=== PATIENT | female | born 1975 | race Caucasian/White ===

== ENCOUNTER → 2016-08-20 | Outpatient (CLI) | payer OTHER ==
--- NOTE | 2016-08-20 22:26 | MR ---
EXAMINATION TYPE: MR lumbar spine wo con DATE OF EXAM: 08/20/2016 7:12 PM COMPARISON: NONE HISTORY: 41-year-old female with low back pain, left lower extremity radiculopathy for 2 weeks, no tr auma or surgery. TECHNIQUE: Multiplanar, multisequence images of the lumbar spine were acquired. FINDINGS: There is levoconvex curvature of the lumbar spine with some Modic type II fatty endplate change towar ds the right side of concavity at L3-L4. No suspicious bone marrow replacement. Moderate degenerative disc disease with disc desiccation, disc height loss, and disc bulging from L2 through S1 levels. Facet degenerative change particularly on the left side in the lower lumbar spine. Vertebral body heights are preserved and alignment is maintained. Conus medullaris is normal. At T12-L1, no spinal canal or neuroforaminal stenosis. At L1-L2, no spinal canal and neuroforaminal stenosis. At L2-L3, there is diffuse disc bulge with superimposed left paracentral broad-based disc protrusion. This may impinge the traversing left L3 nerve root. No significant spinal canal or neuroforaminal st enosis. At L3-L4, there is diffuse disc bulge eccentric towards the left with facet degenerative change. This may impinge the traversing left L4 nerve root. There is minimal inferior foraminal narrowing on the left and mild right-sided neuroforaminal stenosis. No significant spinal canal stenosis. At L4-L5, diffuse disc bulge with ligamentum flavum thickening and facet degenerative change. Changes result in moderate left neuroforaminal stenosis without spinal canal stenosis. At L5-S1, there is diffuse disc bulge with right paracentral annular fissure which closely approaches and may abut the traversing right S1 nerve root. There is mild right neuroforaminal stenosis without spinal canal stenosis. No prevertebral or paravertebral soft tissue abnormality. IMPRESSION: 1. Levoconvex scoliosis of the lumbar spine with associated moderate degenerative disc disease as wel l as facet arthropathy and ligamentum flavum thickening particularly from L2 through S1 levels. 2. At L2-L3 and L3-L4, eccentric leftward disc bulge may impinge the traversing left L3 and left L4 n erve roots, at their respective levels. 3. At L5-S1, there is a disc bulge containing an annular fissure which closely approaches and may abu t the traversing right S1 nerve root. 4. Mild right neuroforaminal stenosis at L3-L4, moderate on the left at L4-L5, and mild on the right at L5-S1. 5. No canal compromise.
== END | disposition home or self-care (01) ==
LOC: RADMRIMAIN 17:55
PROVIDERS: ATTEND Family Medicine
DX: M99.73 Connective tissue and disc stenosis of intervertebral foramina of lumbar region (principal); M99.74 Connective tissue and disc stenosis of intervertebral foramina of sacral region; M51.17 Intervertebral disc disorders with radiculopathy, lumbosacral region; M46.97 Unspecified inflammatory spondylopathy, lumbosacral region; M41.87 Other forms of scoliosis, lumbosacral region; M24.28 Disorder of ligament, vertebrae
CPT/HCPCS: 72148

== ENCOUNTER → 2016-10-11 | Outpatient (CLI) | payer OTHER ==
--- NOTE | 2016-10-12 07:13 | MM ---
Reason for exam: screening (asymptomatic). Last mammogram was performed 1 year and 1 month ago. History: Patient is postmenopausal. Physical Findings: A clinical breast exam by your physician is recommended on an annual basis and results should be correlated with mammographic findings. MG Screening Mammo w CAD Bilateral CC and MLO view(s) were taken. Prior study comparison: September 20, 2015, bilateral MG 3d screening mammo w/cad. August 28, 2013, bilateral digital screening mammo w/CAD. The breast tissue is almost entirely fat. There is no discrete abnormality. No significant changes when compared with prior studies. ASSESSMENT: Negative, BI-RAD 1 RECOMMENDATION: Routine screening mammogram of both breasts in 1 year.
== END | disposition home or self-care (01) ==
LOC: RADMAMWWP 11:45
PROVIDERS: ATTEND Family Medicine
DX: Z12.31 Encounter for screening mammogram for malignant neoplasm of breast (principal)

== ENCOUNTER → 2016-11-28 | Outpatient (CLI) | payer OTHER ==
[2016-11-28 10:54] LABS: Blood Urea Nitrogen 18 mg/dL (7-17); Non-African American GFR(MDRD) 54 (>60 ml/min/1.73 sqM)
--- NOTE | 2016-11-28 12:03 | MR ---
EXAMINATION TYPE: MR brain wo/w con DATE OF EXAM: 11/28/2016 COMPARISON: 04/24/16 HISTORY: ms, astrocytoma brain surgery. TECHNIQUE: Multiplanar, multisequence images of the brain and brainstem is performed without and with utilizing 19 mL intravenous MultiHance gadolinium contrast. Demyelinating disease protocol with additional Sag ittal Flair sequence performed. FINDINGS: T2 Lesions Present : Yes Approximate Number of Lesions: Essentially stable 6-8 right-sided cerebral hemisphere lesions with a pproximately 6-8 stable left-sided cerebral hemisphere lesions. No infratentorial lesions are seen. O ne or 2 small bilateral temporal lesions. Locations Identified : Juxtacortical in location primarily. No Bonner finger morphology seen. Size of Reference Lesion(s): 1. 3 mm left juxtacortical frontal lobe. 2 5 mm subcortical left temporal lobe Enhancing Lesion(s) Present: None T1 Hypointense Lesion(s) Present: None Change from Prior: Stable There is postoperative encephalomalacia right frontal lobe with underlying cystic change and associat ed gliosis. Right frontal craniotomy noted. No abnormal enhancement of the surgical bed. The ventricles, basal cisterns and sulci overlying the cerebral convexities are mildly enlarged. There is evidence of mild periventricular white matter ischemic demyelination. Scattered nonspecific white matter changes. No evidence for acute edema diffusion weighted imaging. There is no evidence for midline shift or mass effect. Acute intracranial hemorrhage or extra-axial collection is not evident. No enhancing lesions are seen . No evidence of tumor recurrence. The paranasal sinuses and mastoid air cells are well-aerated. IMPRESSION: 1. Stable postoperative changes of right frontal craniotomy and postoperative encephalomalacia and gl iosis. No recurrent or residual enhancing lesion identified. 2. Stable Nonspecific white matter changes.
== END | disposition home or self-care (01) ==
LOC: RADMRIMAIN 10:11
PROVIDERS: ATTEND Psychiatry & Neurology Neurology
DX: G93.89 Other specified disorders of brain (principal); R90.89 Other abnormal findings on diagnostic imaging of central nervous system; G35 Multiple sclerosis; Z98.890 Other specified postprocedural states
CPT/HCPCS: 82565; 84520; 70553; A9577

== ENCOUNTER → 2017-03-25 | Outpatient (CLI) | payer OTHER ==
[2017-03-25 21:55] LABS: Appearance,CSF Clear
== END | disposition home or self-care (01) ==
LOC: LABWHC1 12:47
PROVIDERS: ATTEND Psychiatry & Neurology Neurology
DX: R90.82 White matter disease, unspecified (principal)
CPT/HCPCS: 36415; 82040; 82042; 82784; 83873; 83916; 84157; 87476; 88108; 89050

== ENCOUNTER → 2017-09-09 | Outpatient (CLI) | payer OTHER ==
--- NOTE | 2017-09-09 16:30 | MR ---
EXAMINATION TYPE: MR lumbar spine wo con DATE OF EXAM: 09/09/2017 COMPARISON: 08/20/2016 HISTORY: 42-year-old female with pain, Disc Degeneration of Lumbar Region TECHNIQUE: Multiplanar, multisequence images of the lumbar spine were acquired. FINDINGS: Levoconvex curvature of the lumbar spine. Vertebral body heights are preserved and alignment is maintained. Moderate intervertebral disc desiccation with variable mild disc height loss and diffuse disc bulging from L2 to S1 levels. Similar right paracentral annular fissure at L5-S1. New central, right paracen tral annular fissure at L3-L4. Facet arthropathy mid to lower lumbar spine. Fatty matrix hemangioma within L2 vertebral body. No suspicious bone marrow replacement. Conus medullaris is normal. At T12-L1, no spinal canal or foraminal stenosis. L1-L2, no spinal canal or neuroforaminal stenosis. At L2-L3, there is diffuse disc bulge with superimposed left paracentral disc extrusion with inferior migration of disc material, increased from prior exam. Impinges the traversing left L3 nerve root. N o significant neuroforaminal stenosis. While there is attenuation of the thecal sac, there is no sign ificant spinal canal stenosis. At L3-L4, there is diffuse disc bulge with small right paracentral annular fissure, new in the interv al. Mild facet degenerative change and bulging disc. There is impression on the ventral dural sac wit hout significant spinal canal stenosis. Changes result in similar mild bilateral neuroforaminal steno sis. At L4-L5, there is bulging disc with left intraforaminal component slightly larger from prior with li gamentum flavum thickening and facet degenerative change. There may be impingement of the traversing left L5 nerve root similar prior. Moderate left neuroforaminal stenosis is similar. No spinal canal s tenosis. At L5-S1, there is a central, right paracentral disc protrusion with annular fissure which closely ap proaches and may abut the traversing right S1 nerve root. This appears similar to prior exam. Mild ri ght-sided neural foraminal stenosis. There is a left L5 hemisacralization incidentally noted. No prevertebral or paravertebral soft tissue abnormality. IMPRESSION: 1. Left L5 hemisacralization and a levoconvex curvature/scoliosis. 2. Moderate degenerative disc disease especially from L2 through S1 levels. There is a small right-si ded herniation at L5-S1 with annular fissure that seems to abut the traversing right S1 nerve root. 3. Left paracentral disc extrusion with inferior migration appears larger from 2016. This impinges th e traversing left L3 nerve root. 4. New small right paracentral annular fissure at L3-L4. Similar mild bilateral neuroforaminal stenos is. 5. Diffuse disc bulge at L4-L5 with left intraforaminal component slightly larger from prior. There m ay be impingement of the traversing left L5 nerve root here. Moderate left neuroforaminal stenosis is similar.
== END | disposition home or self-care (01) ==
LOC: RADMRIMAIN 09:20
PROVIDERS: ATTEND Neurological Surgery
DX: M99.73 Connective tissue and disc stenosis of intervertebral foramina of lumbar region (principal); M41.9 Scoliosis, unspecified; M51.37 Other intervertebral disc degeneration, lumbosacral region; M51.27 Other intervertebral disc displacement, lumbosacral region
CPT/HCPCS: 72148

== ENCOUNTER → 2017-09-19 | Outpatient (CLI) | payer OTHER ==
--- NOTE | 2017-09-20 07:59 | CT ---
EXAMINATION TYPE: CT lumbar spine wo con DATE OF EXAM: 09/19/2017 4:54 PM COMPARISON: 09/09/2017 MRI lumbar spine HISTORY: Acquired absence of other organs. History of lumbar laminectomy. CT DLP: 1560.6 mGycm Automated exposure control for dose reduction was used. FINDINGS: The lumbar vertebral bodies maintain normal vertebral body height and alignment. Overlying the skin s urface postsurgical change is seen from L1 through L3 dorsally. Small laminectomy defect is presumed that L2 on the left. As seen on the prior MR degenerative changes of the lumbosacral spine are seen w ith left L5 hemisacralization and a levoconvex scoliotic curvature. The pedicles and transverse proce sses appear intact. There is mild multilevel degenerative change of the lumbar spine. L1-L2: Normal disc space height. No disc herniation protrusion or central stenosis. No facet joint arthropathy. No evidence for foraminal encroachment. L2-L3: As seen on the prior MRI there is a small broad-based disc bulge. There is also a left paracen tral disc herniation effacing the lateral recess and extending into the neural foramen impressing upo n the left L3 nerve root and creating moderate left neural foraminal narrowing. No spinal canal steno sis or right neural foraminal narrowing. L3-L4: A broad-based disc bulge is evident examination with facet arthropathy creating mild bilateral neural foraminal narrowing. L4-L5: There is a broad-based disc bulge and ligamentum flavum buckling resulting in moderate to alyssa re left neural foraminal narrowing and mild right neuroforaminal narrowing. No spinal canal stenosis. L5-S1: The known right paracentral disc protrusion/herniation at L5-S1 is better appreciated on MRI. Mild right neural foraminal narrowing is seen. Left neural foramen and spinal canal are patent. IMPRESSION: 1. Postsurgical changes of the lumbar spine without evidence of malalignment. 2. Left paracentral disc herniation at L2-L3 effacing the exiting left L3 nerve root creating moderat e left neural foraminal narrowing. 3. Left L5 hemisacralization and levoconvex scoliotic curvature. 4. Multilevel degenerative disc disease as described above with better visualization of the known dis c protrusion/herniation at L5 on the prior MR.
== END | disposition home or self-care (01) ==
LOC: RADCTMAIN 16:15
PROVIDERS: ATTEND Neurological Surgery
DX: M51.26 Other intervertebral disc displacement, lumbar region (principal); M99.73 Connective tissue and disc stenosis of intervertebral foramina of lumbar region; M51.36 Other intervertebral disc degeneration, lumbar region; M41.9 Scoliosis, unspecified; Z90.89 Acquired absence of other organs
CPT/HCPCS: 72131

== ENCOUNTER → 2017-10-31 | Outpatient (CLI) | payer OTHER ==
[2017-10-30 10:56] VITALS: BMI 35.2
[2017-10-31 14:49] VITALS: BP 169/99; PULSE 91; RESP 18
--- NOTE | 2017-10-31 15:29 | P.CONS ---
History of Present Illness - Reason for Consult Consult date: 10/31/17 - Chief Complaint Lower back pain - History of Present Illness This is a 42-year-old female with history of lower back pain with occasional radiation to the left upper thigh anteriorly. The patient had one back surgery previously and the most recent MRI on the lumbar spine showed paracentral disc extrusion at the L2-L3 level with compression of the left L3 nerve root. The patient denies any bowel or bladder dysfunction or any weakness in the lower extremities. This pain occasionally wakes her up at night. The patient had the seen a neurosurgeon who would like to try less invasive procedures before planning on doing any surgery on her. Prolonged activity increases her pain. She takes [id number] pain medications for this problem. 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 She also had multiple strokes and was placed on Xarelto however she told me that her physician was planning on taking her off Xarelto but she was hesitant accepting this decision because of her fear of another stroke. Past Medical History Past Medical History: CVA/TIA, Diabetes Mellitus, Hyperlipidemia, Hypertension, Musculoskeletal Disorder Additional Past Medical History / Comment(s): COLITIS, IBS. HX ENDOMETRIOSIS; ASTROCYTOMA(REMVOED). CVA X2, LT SIDE WEAKNESS. LOWER BACK PAIN W/ OCC NT & PAIN DOWN LT LEG. History of Any Multi-Drug Resistant Organisms: None Reported Past Surgical History: Back Surgery, Hysterectomy, Tonsillectomy, Uterine Ablation Additional Past Surgical History / Comment(s): BENIGN Brain Tumor (ASTROCYTOMA) REMOVED 1995. COLONOSCOPY. BACK SURG 2017. Past Anesthesia/Blood Transfusion Reactions: No Reported Reaction, Family History of Problems w/ Anesthesia Additional Past Anesthesia/Blood Transfusion Reaction / Comm: MOTHER SLOW TO AWAKEN Smoking Status: Never smoker - Past Family History Father Family Medical History: Cancer, Diabetes Mellitus, Deep Vein Thrombosis (DVT), Hypertension, Prostate Disorder Additional Family Medical History / Comment(s): PROSTATE CANCER Mother Family Medical History: COPD, Diabetes Mellitus, Hypertension Medications and Allergies Home Medications Medication Instructions Recorded Confirmed Type Exenatide Microspheres [Bydureon 2 mg SQ Q7D 10/19/15 10/30/17 History Pen] Hyoscyamine Sulfate [Levbid] 0.375 mg PO BID 10/19/15 10/30/17 History Insulin Glargine,Hum.rec.anlog 56 units SQ HS 10/19/15 10/30/17 History [Lantus Solostar] Lisinopril 40 mg PO DAILY 10/19/15 10/30/17 History Sertraline HCl 100 mg PO BID 10/19/15 10/30/17 History lamoTRIgine [Lamotrigine] 25 mg PO BID 10/19/15 10/30/17 History metFORMIN HCL 1,000 mg PO BID 10/19/15 10/30/17 History Rivaroxaban [Xarelto] 20 mg PO W/SUPPER #60 tab 10/24/15 10/30/17 Rx Ergocalciferol (Vitamin D2) 50,000 unit PO WE 10/30/17 10/30/17 History [Vitamin D2] Glimepiride [Amaryl] 1 mg PO AC-[id number] 10/30/17 10/30/17 History Naproxen Sodium [Aleve] 440 - 660 mg PO BID PRN 10/30/17 10/30/17 History Rosuvastatin Calcium [Crestor] 40 mg PO HS 10/30/17 10/30/17 History amLODIPine [Norvasc] 10 mg PO DAILY 10/30/17 10/30/17 History Allergies Allergy/AdvReac Type Severity Reaction Status Date / Time No Known Allergies Allergy Verified 10/30/17 10:40 Physical Exam Vitals: Vital Signs Pulse Resp BP Pulse Ox 10/31/17 14:38 91 18 169/99 97 - Constitutional General appearance: obese - EENT Eyes: PERRLA - Respiratory Respiratory: bilateral: CTA - Cardiovascular Rhythm: regular Heart sounds: normal: S1, S2 - Psychiatric Psychiatric: A&O x's 3, appropriate affect, intact judgment & insight Neuro exam of the lower extremities showed normal and symmetrical muscle strength and decreased but symmetrical knee reflexes however she has absent ankle jerks bilaterally and symmetrically. Straight leg raising test negative bilaterally. Steven's test negative bilaterally. She has well-healed scar from her previous lumbar surgery. She has tenderness in the lumbar paravertebral area especially on the left side of her spine and also around the left sacroiliac joint Assessment and Plan Plan: This is a 42-year-old female with history of back surgery about one year ago and recurrent back pain with occasional radiation to the left upper thigh anteriorly with no paresthesia. The patient has a compression of the left L3 nerve root as per her last MRI of the lumbar spine. The patient is diabetic and takes Xarelto for history of strokes. She may benefit from getting either caudal epidural steroid injection with lysis of adhesions or left L3 nerve root block under fluoroscopic guidance however we will have to hold her Xarelto for 72 hours but she can continue her aspirin. The patient will finish her physical therapy first and depending on her pain after she does that we will reevaluate her and see if she would like us to go ahead and schedule her for caudal epidural steroid injection. We will see the patient 4 weeks from now for reevaluation.
== END | disposition home or self-care (01) ==
LOC: PNWHC3 14:10
PROVIDERS: ATTEND Anesthesiology
DX: M54.5 Low back pain (principal); E11.9 Type 2 diabetes mellitus without complications; E78.5 Hyperlipidemia, unspecified; I10 Essential (primary) hypertension; Z90.710 Acquired absence of both cervix and uterus; Z90.89 Acquired absence of other organs; Z79.4 Long term (current) use of insulin; Z79.899 Other long term (current) drug therapy; Z79.84 Long term (current) use of oral hypoglycemic drugs; Z79.01 Long term (current) use of anticoagulants; Z79.1 Long term (current) use of non-steroidal anti-inflammatories (NSAID); Z98.890 Other specified postprocedural states
CPT/HCPCS: 99211

== ENCOUNTER → 2018-02-06 | Outpatient (CLI) | payer OTHER ==
--- NOTE | 2018-02-06 23:05 | MR ---
EXAMINATION TYPE: MR brain wo/w con DATE OF EXAM: 02/06/2018 COMPARISON: MRI brain November 28, 2016. HISTORY: White matter changes, hx astrocytoma removed 1995 TECHNIQUE: Multiplanar, multisequence images of the brain and brainstem is performed without and with IV contras t, utilizing 10 mL intravenous Gadavist gadolinium contrast is administered intravenously. Demyelina ting disease protocol with additional Sagittal Flair sequence is not performed as ordered. FINDINGS: Exam noted slightly suboptimal as additional demyelinating disease sagittal FLAIR sequence not performed presumed due to ear mold laboratory technician error. T2 Lesions Present : Yes Approximate Number of Lesions: Difficult to accurately count due to confluent area of encephalomalaci a on the right. Suspect approximately 6 scattered small lesions on the right and approximately 12 sm aller lesions on the left. Not significantly changed from prior. Locations Identified : Scattered Size of Reference Lesion(s): 1. Focal reference 6 x 2 mm oval posterior right frontal lesion axial image 20 stable. 2 reference for at least 6 punctate lesions on the left axial image 17 measuring up to 3 mm in size Enhancing Lesion(s) Present: No T1 Hypointense Lesion(s) Present: No Change from Prior: Stable Diffusion weighted images demonstrate no evidence of a recent infarct or other diffusion abnormality. There is no worrisome extra-axial fluid collection. There is area of old encephalomalacia right fro ntal region with slight ex vacuo dilatation of right ventricular system redemonstrated. Overlying aircraft systems repairer niotomy or surgical change redemonstrated. Midline structures demonstrate normal morphology. The craniocervical junction appears within normal limits. Post contrast images demonstrate no abnormal enhancement. The dural venous sinuses appear pa tent. The visualized sinuses are clear and the globes are intact. IMPRESSION: Stable postsurgical changes right frontal region and mild nonspecific white matter change s. No new or enhancing lesions are seen.
== END ==
LOC: RADMRIMAIN 07:18
PROVIDERS: ATTEND Psychiatry & Neurology Neurology
DX: R90.89 Other abnormal findings on diagnostic imaging of central nervous system (principal); Z98.890 Other specified postprocedural states
CPT/HCPCS: 82565; 84520; 70553; A9581

== ENCOUNTER 2019-01-29 12:26 | Inpatient (IN) | payer OTHER ==
[2019-01-29] MEDS ORDERED: SODIUM CHLORIDE 0.9% 1,000 ML IV STA (13:27)
--- NOTE | 2019-01-29 14:01 | ED ---
Neuro HPI - General Chief Complaint: Headache Stated Complaint: headache, dizziness, blured vision Time Seen by Provider: 01/29/19 13:01 Source: patient, RN notes reviewed, old records reviewed Mode of arrival: ambulatory Limitations: no limitations - History of Present Illness Is the patient presenting with stroke symptoms?: No Initial Comments: This is a 43-year-old female the ER for evaluation just have significant neurological history: Brain tumor with surgery 1994 and 2 strokes since then. Patient presented with blurry vision and dizziness symptoms 3 days. Patient also complaining of headaches. She states she has not felt like herself for quite some time denying any trauma. No fevers. No chest pain or shortness of breath. No recent change in medications. No significant recent hospitalizations. Patient is a mildly poor historian. Not very accurate with a lot of her statements regarding her medical history Location: other ([place], blurry vision, dizziness) History of same: Yes Place: home Severity: mild Quality: other (none) Improves With: none Worsens With: none On Anticoagulants: Yes Context: gradual onset Associated Symptoms: weakness Treatments Prior to Arrival: none - Related Data Home Medications: Home Medications Medication Instructions Recorded Confirmed Hyoscyamine Sulfate [Levbid] 0.375 mg PO BID 10/19/15 01/29/19 Lisinopril 40 mg PO DAILY 10/19/15 01/29/19 Sertraline HCl 100 mg PO BID 10/19/15 01/29/19 lamoTRIgine [Lamotrigine] 25 mg PO BID 10/19/15 01/29/19 metFORMIN HCL 1,000 mg PO BID 10/19/15 01/29/19 Ergocalciferol (Vitamin D2) 50,000 unit PO WE 10/30/17 01/29/19 [Vitamin D2] Rosuvastatin Calcium [Crestor] 40 mg PO HS 10/30/17 01/29/19 amLODIPine [Norvasc] 10 mg PO DAILY 10/30/17 01/29/19 Hydrochlorothiazide 12.5 mg PO DAILY 01/29/19 01/29/19 Insulin Glargine [Lantus] 45 unit SQ BID 01/29/19 01/29/19 Liraglutide [Victoza 3-Kapil] 1.8 mg SQ DAILY 01/29/19 01/29/19 Pioglitazone [Actos] 15 mg PO DAILY 01/29/19 01/29/19 Pioglitazone [Actos] 15 mg PO DAILY 01/29/19 01/29/19 Triamterene/Hydrochlorothiazid 1 tab PO DAILY 01/29/19 01/29/19 [Triamterene-Hctz 37.5-25 mg Tb] Vortioxetine Hydrobromide 10 mg PO DAILY 01/29/19 01/29/19 [Trintellix] Allergies/Adverse Reactions: Allergies Allergy/AdvReac Type Severity Reaction Status Date / Time No Known Allergies Allergy Verified 01/29/19 12:40 Review of Systems ROS Statement: Those systems with pertinent positive or pertinent negative responses have been documented in the HPI. ROS Other: All systems not noted in ROS Statement are negative. General Exam - General Exam Comments Initial Comments: NIH of 0 Limitations: no limitations General appearance: alert, in no apparent distress Head exam: Present: atraumatic, normocephalic, normal inspection Eye exam: Present: normal appearance, PERRL, EOMI. Absent: scleral icterus, conjunctival injection, periorbital swelling ENT exam: Present: normal exam, mucous membranes moist Neck exam: Present: normal inspection. Absent: tenderness, meningismus, lymphadenopathy Respiratory exam: Present: normal lung sounds bilaterally. Absent: respiratory distress, wheezes, rales, rhonchi, stridor Cardiovascular Exam: Present: regular rate, normal rhythm, normal heart sounds. Absent: systolic murmur, diastolic murmur, rubs, gallop, clicks GI/Abdominal exam: Present: soft, normal bowel sounds. Absent: distended, tend erness, guarding, rebound, rigid Extremities exam: Present: normal inspection, full ROM, normal capillary refill. Absent: tenderness, pedal edema, joint swelling, calf tenderness Back exam: Present: normal inspection Neurological exam: Present: alert, oriented X3, CN II-XII intact Psychiatric exam: Present: normal affect, normal mood Skin exam: Present: warm, dry, intact, normal color. Absent: rash Stroke MDM - Lab Data Result diagrams: 01/29/19 14:08 01/29/19 14:08 Lab Results 01/29/19 01/29/19 01/29/19 Range/Units 14:08 14:08 14:08 WBC 9.8 (3.8-10.6) k/uL RBC 4.18 (3.80-5.40) m/uL Hgb 12.8 (11.4-16.0) gm/dL Hct 36.2 (34.0-46.0) % MCV 86.6 (80.0-100.0) fL MCH 30.5 (25.0-35.0) pg MCHC 35.3 (31.0-37.0) g/dL RDW 12.2 (11.5-15.5) % Plt Count 307 (150-450) k/uL Neutrophils % 72 % Lymphocytes % 22 % Monocytes % 4 % Eosinophils % 1 % Basophils % 0 % Neutrophils # 7.1 (1.3-7.7) k/uL Lymphocytes # 2.2 (1.0-4.8) k/uL Monocytes # 0.4 (0-1.0) k/uL Eosinophils # 0.1 (0-0.7) k/uL Basophils # 0.0 (0-0.2) k/uL PT 9.7 (9.0-12.0) sec INR 0.9 (<1.2) APTT 26.1 (22.0-30.0) sec Sodium 135 L (137-145) mmol/L Potassium 4.9 (3.5-5.1) mmol/L Chloride 98 (98-107) mmol/L Carbon Dioxide 24 (22-30) mmol/L Anion Gap 13 mmol/L BUN 45 H (7-17) mg/dL Creatinine 2.74 H (0.52-1.04) mg/dL Est GFR (CKD-EPI)AfAm 23 (>60 ml/min/1.73 sqM) Est GFR (CKD-EPI)NonAf 20 (>60 ml/min/1.73 sqM) Glucose 133 H (74-99) mg/dL Calcium 9.7 (8.4-10.2) mg/dL Total Bilirubin 0.3 (0.2-1.3) mg/dL AST 26 (14-36) U/L ALT 18 (9-52) U/L Alkaline Phosphatase 63 (38-126) U/L Creatine Kinase 53 (30-135) U/L Troponin I (0.000-0.034) ng/mL Total Protein 6.8 (6.3-8.2) g/dL Albumin 3.8 (3.5-5.0) g/dL 01/29/19 Range/Units 14:08 WBC (3.8-10.6) k/uL RBC (3.80-5.40) m/uL Hgb (11.4-16.0) gm/dL Hct (34.0-46.0) % MCV (80.0-100.0) fL MCH (25.0-35.0) pg MCHC (31.0-37.0) g/dL RDW (11.5-15.5) % Plt Count (150-450) k/uL Neutrophils % % Lymphocytes % % Monocytes % % Eosinophils % % Basophils % % Neutrophils # (1.3-7.7) k/uL Lymphocytes # (1.0-4.8) k/uL Monocytes # (0-1.0) k/uL Eosinophils # (0-0.7) k/uL Basophils # (0-0.2) k/uL PT (9.0-12.0) sec INR (<1.2) APTT (22.0-30.0) sec Sodium (137-145) mmol/L Potassium (3.5-5.1) mmol/L Chloride (98-107) mmol/L Carbon Dioxide (22-30) mmol/L Anion Gap mmol/L BUN (7-17) mg/dL Creatinine (0.52-1.04) mg/dL Est GFR (CKD-EPI)AfAm (>60 ml/min/1.73 sqM) Est GFR (CKD-EPI)NonAf (>60 ml/min/1.73 sqM) Glucose (74-99) mg/dL Calcium (8.4-10.2) mg/dL Total Bilirubin (0.2-1.3) mg/dL AST (14-36) U/L ALT (9-52) U/L Alkaline Phosphatase (38-126) U/L Creatine Kinase (30-135) U/L Troponin I <0.012 (0.000-0.034) ng/mL Total Protein (6.3-8.2) g/dL Albumin (3.5-5.0) g/dL - NIH Stroke Scale 1a. Level of Consciousness: (0) alert 1b. LOC Questions: (0) answers correctly 1c. LOC Commands: (0) performs tasks correctly 2. Best Gaze: (0) normal 3. Visual: (0) no visual loss 4. Facial Palsy: (0) normal symmetrical movement 5a. Motor Arm Left: (0) no drift 5b. Motor Arm Right: (0) no drift 6a. Motor Leg Left: (0) no drift 6b. Motor Leg Right: (0) no drift 7. Limb Ataxia: (0) absent 8. Sensory: (0) normal 9. Best Language: (0) no aphasia 10. Dysarthria: (0) normal 11. Extinction/Inattention: (0) no abnormality - Thrombolytic Inclusion/Exclusion Thrombolytic Exclusion Criteria: Symptom Onset > 4.5 Hours - Medical Decision Making 43 female the ER for evaluation patient resents today for evaluation of neurological symptoms headache dizziness and weakness. CT brain unchanged, chest x-rays negative. We'll admit for continued hydration evaluation of renal failure and neurology to see - Radiology Data Radiology results: report reviewed (CT brain and chest x-rays negative for acute), image reviewed - EKG Data -: EKG Interpreted by Me (EKG shows sinus rhythm rate of 84, W[place] 1:30, QRS 90, QTc 470) Past Medical History Past Medical History: CVA/TIA, Diabetes Mellitus, Hyperlipidemia, Hypertension, Musculoskeletal Disorder Additional Past Medical History / Comment(s): COLITIS, IBS. HX ENDOMETRIOSIS; ASTROCYTOMA(REMVOED). CVA X2, LT SIDE WEAKNESS. LOWER BACK PAIN W/ OCC NT & PAIN DOWN LT LEG. History of Any Multi-Drug Resistant Organisms: None Reported Past Surgical History: Back Surgery, Hysterectomy, Tonsillectomy, Uterine A blation Additional Past Surgical History / Comment(s): BENIGN Brain Tumor (ASTROCYTOMA) REMOVED 1995. COLONOSCOPY. BACK SURG 2017. Past Anesthesia/Blood Transfusion Reactions: No Reported Reaction, Family History of Problems w/ Anesthesia Additional Past Anesthesia/Blood Transfusion Reaction / Comment(s): MOTHER SLOW TO AWAKEN Past Psychological History: Anxiety, Depression Smoking Status: Never smoker Past Alcohol Use History: None Reported Past Drug Use History: None Reported - Past Family History Father Family Medical History: Cancer, Diabetes Mellitus, Deep Vein Thrombosis (DVT), Hypertension, Prostate Disorder Additional Family Medical History / Comment(s): PROSTATE CANCER Mother Family Medical History: COPD, Diabetes Mellitus, Hypertension Course Vital Signs 01/29/19 01/29/19 12:37 12:40 Temperature 98.5 F 98.0 F Pulse Rate 92 89 Respiratory 20 16 Rate Blood Pressure 105/64 127/76 O2 Sat by Pulse 97 98 Oximetry - Reevaluation(s) Reevaluation #1: 01/29/19 15:21 Medical records are reviewed Reevaluation #2: 01/29/19 15:21 A she is in no acute distress, no evolving neurological change Disposition Clinical Impression: CVA (cerebral vascular accident), TIA (transient ischemic attack), ARF (acute renal failure) Disposition: ADMITTED IP TO THIS HOSP Condition: Fair Is patient prescribed a controlled substance at d/c from ED?: No Referrals: Heath Morrow DO [Primary Care Provider] - 1-2 days
[2019-01-29 14:33] LABS: Basophils % (A) 0 %; Eosinophils # (A) 0.1 k/uL (0-0.7); Eosinophils % (A) 1 %; HCT 36.2 % (34.0-46.0); HGB 12.8 gm/dL (11.4-16.0); Lymphocytes # (A) 2.2 k/uL (1.0-4.8); Lymphocytes % (A) 22 %; MCH 30.5 pg (25.0-35.0); MCHC 35.3 g/dL (31.0-37.0); MCV 86.6 fL (80.0-100.0); Mean Platelet Volume 6.4; Monocytes # (A) 0.4 k/uL (0-1.0); Monocytes % (A) 4 %; Neutrophils # (A) 7.1 k/uL (1.3-7.7); Neutrophils % (A) 72 %; Platelet Count 307 k/uL (150-450); RBC 4.18 m/uL (3.80-5.40); RDW 12.2 % (11.5-15.5); WBC 9.8 k/uL (3.8-10.6)
[2019-01-29 14:37] LABS: INR 0.9 (<1.2); Partial Thromboplastin Time 26.1 sec (22.0-30.0); Prothrombin Time 9.7 sec (9.0-12.0)
[2019-01-29 14:38] LABS: Albumin 3.8 g/dL (3.5-5.0); Calcium 9.7 mg/dL (8.4-10.2); Potassium 4.9 mmol/L (3.5-5.1); Total Bilirubin 0.3 mg/dL (0.2-1.3); Total Protein 6.8 g/dL (6.3-8.2)
--- NOTE | 2019-01-29 14:41 | CT ---
EXAMINATION TYPE: CT brain wo con for TPA DATE OF EXAM: 01/29/2019 COMPARISON: INDICATION: Neuro defiicts, dizziness, blurred vision for 3 days DLP: 1099.4 mGycm, Automated exposure control for dose reduction was used. CONTRAST: None CT of the brain is performed utilizing 3 mm thick sections through the posterior fossa and 3 mm thick sections through the remaining calvarium. Study is performed within 24 hours of arrival to the hosp ital. No abnormal hyperdensity is present to suggest an acute intracranial hemorrhage. No mass lesion is evident. There is some calcification along the midline falx to the right may be ret urned out meningioma with the depth of 0.7 cm. No significant mass effect on the adjacent brain is ev ident. There is some calcification within the parenchyma of the right frontal lobe. This was present previou sly. No acute infarcts are evident. Old infarcts are within the right basal ganglia. White matter changes are present in the right frontal lobe. Irregular signal within the brain is normal Ventricles and sulci are appropriate for the patient age. Paranasal sinuses and mastoid air cells within the [id number] are clear. IMPRESSIONS: 1. Old right frontal and right basal ganglia infarcts. 2. No acute intracranial process.
[2019-01-29] MEDS ORDERED: ASPIRIN 325 MG TAB PO STA (15:16)
[2019-01-29 15:53] LABS: Appearance,Urine Cloudy (Clear); Bacteria,Urine Rare /hpf; Bilirubin,Urine Negative (Negative); Blood,Urine Negative (Negative); Color,Urine Yellow; Glucose,Urine (UA) Negative (Negative); Hyaline Casts,Urine 7 /lpf (0-2); Ketones,Urine Negative (Negative); Leukocyte Esterase,Urine Negative (Negative); Mucus,Urine Rare /hpf; Nitrite,Urine Negative (Negative); Protein,Urine 1+ (Negative); RBC,Urine <1 /hpf (0-5); Squamous Epithelial Cell,Urine 4 /hpf (0-4); Urobilinogen,Urine <2.0 mg/dL (<2.0); WBC,Urine 6 /hpf (0-5)
[2019-01-29 17:01] LABS: Glucose,Whole Blood 114 mg/dL (75-99)
--- NOTE | 2019-01-29 17:33 | P.CNNES ---
History of Present Illness Consult date: 01/29/19 Requesting physician: Nito Toscano Reason for Consult: CVA Chief complaint: Headache, dizzy and blurred vision x 3 days History of Present Illness: This is a 43 RH female h/o right hemispheric astrocytoma s/p resection 1994 in remission since followed by Dr. Gonzales. She had a stroke on the table during the resection. Details are not clear, but reportedly she did not have residual deficits other than chronic headaches. In 2016, she presented with sudden onset of blurred vision affecting both eyes. Imageries were "jittery" towards one side. She was found to have a right occipital cortical and subcortical ischemic infarct for which STEFF was done to r/o an embolic source. No [id number]-[id number] shunt was found, but her EF was low at 30%. She was put on Xarelto and aspirin. Her Xarelto was eventually discontinued by cardiology, but she is maintained on aspirin and statin. Her vascular risk factors include HTN, DM and HL. Patient states her BS have not been under control and can run up to the 400s. She states that since her brain surgery and strokes, she suffers from chronic headaches, but over the past 3 days, she just has not been feeling right with worsening of her headache, bilateral blurred vision without actual loss of vision, diplopia or amaurosis; and lightheadedness without vertigo or loss of consciousness. She states the blurred vision she currently experiences is not the same as what she had back in 2016 when she had her occipital stroke. She also c/o poor STM. LTM is ok. Her corroborates that she needs to be reminded quite frequently. No sundowning, nocturnal agitation or psychosis. She was found in the ER to be in renal failure, with her current creatinine at 2.74 with an estimated GFR of 20. Her last Cr checked in our system was back in 06/2018 that was impaired but not quite as bad at 1.6. Patient is not aware of any chronic renal issues and does not routinely see a baker second. Neurologically, patient denies seizure, decreased level or loss of consciousness, facial numbness or droop, vertigo, dysarthria, dysphagia, aphasia, other focal numbness/weakness not mentioned above, tremors, bowel/bladder incontinence or ataxia. Review of Systems I have performed a 14-point organ ROS with patient; pertinents are as per HPI. Past Medical History Past Medical History: CVA/TIA, Diabetes Mellitus, Hyperlipidemia, Hypertension, Myocardial Infarction (OR), Musculoskeletal Disorder Additional Past Medical History / Comment(s): 1994 Brain resection for a strocytoma and had CVA with surgery/ 2016 CVA=L sided weakness, IDDM type II, takosubo syndrome in 2016, IBS, chronic low back pain occasional numbness/tingling/pain down L leg Last Myocardial Infarction Date:: 2016 takosubo History of Any Multi-Drug Resistant Organisms: None Reported Past Surgical History: Back Surgery, Heart Catheterization, Hysterectomy, Tonsillectomy, Uterine Ablation Additional Past Surgical History / Comment(s): 1994 R sided brain tumor resection, low back surgery, colonoscopies, STEFF Past Anesthesia/Blood Transfusion Reactions: No Reported Reaction, Family History of Problems w/ Anesthesia Additional Past Anesthesia/Blood Transfusion Reaction / Comment(s): MOTHER SLOW TO AWAKEN Past Psychological History: Anxiety, Depression Additional Psychological History / Comment(s): Pt resides alone. She is independent. She uses no assistive devices. Smoking Status: Never smoker Past Alcohol Use History: Rare Past Drug Use History: None Reported - Past Family History Father Family Medical History: Cancer, Diabetes Mellitus, Deep Vein Thrombosis (DVT), Hypertension, Prostate Disorder Additional Family Medical History / Comment(s): PROSTATE CANCER Mother Family Medical History: COPD, Diabetes Mellitus, Hypertension, Respiratory Disorder Additional Family Medical History / Comment(s): Pulmonary fibrosis. Medications and Allergies Home Medications Medication Instructions Recorded Confirmed Type Hyoscyamine Sulfate [Levbid] 0.375 mg PO BID 10/19/15 01/29/19 History Lisinopril 40 mg PO DAILY 10/19/15 01/29/19 History Sertraline HCl 100 mg PO BID 10/19/15 01/29/19 History lamoTRIgine [Lamotrigine] 25 mg PO BID 10/19/15 01/29/19 History metFORMIN HCL 1,000 mg PO BID 10/19/15 01/29/19 History Ergocalciferol (Vitamin D2) 50,000 unit PO WE 10/30/17 01/29/19 History [Vitamin D2] Rosuvastatin Calcium [Crestor] 40 mg PO HS 10/30/17 01/29/19 History amLODIPine [Norvasc] 10 mg PO DAILY 10/30/17 01/29/19 History Hydrochlorothiazide 12.5 mg PO DAILY 01/29/19 01/29/19 History Insulin Glargine [Lantus] 45 unit SQ BID 01/29/19 01/29/19 History Liraglutide [Victoza 3-Kapil] 1.8 mg SQ DAILY 01/29/19 01/29/19 History Pioglitazone [Actos] 15 mg PO DAILY 01/29/19 01/29/19 History Pioglitazone [Actos] 15 mg PO DAILY 01/29/19 01/29/19 History Triamterene/Hydrochlorothiazid 1 tab PO DAILY 01/29/19 01/29/19 History [Triamterene-Hctz 37.5-25 mg Tb] Vortioxetine Hydrobromide 10 mg PO DAILY 01/29/19 01/29/19 History [Trintellix] Allergies Allergy/AdvReac Type Severity Reaction Status Date / Time No Known Allergies Allergy Verified 01/29/19 12:40 Physical Examination - Vital Signs Vital Signs: Vital Signs Temp Pulse Pulse Resp BP BP Pulse Ox 01/29/19 16:20 89 16 157/86 99 01/29/19 16:00 81 89 16 135/70 157/86 99 01/29/19 15:30 143/74 01/29/19 15:00 86 11 L 123/69 99 01/29/19 14:30 84 15 127/76 99 01/29/19 13:30 87 15 127/76 97 01/29/19 12:48 43 H 01/29/19 12:40 98.0 F 89 16 127/76 98 01/29/19 12:37 98.5 F 92 20 105/64 97 Intake and Output 01/29/19 01/29/19 01/29/19 06:59 14:59 22:59 Other: Weight 92.17 kg Gen NAD Pleasant and cooperative HEENT NCAT Sclera without icterus O/P clear Neck Supple No carotid bruit Cor RRR no m/r/g Lungs CTAB Abd Soft NTND +BS Ext Warm to touch No edema Neuro MS A+Ox4 Normal fluency Able to follow all commands CN PERRL VFF no APD EOMI no nystagmus or VIOLETTE No facial asymmetry Masseter's symmetric Hearing intact to normal voice bilaterally Speech not dysarthric Equal elevation of palate Tongue midline Sym shrug and SCM bilaterally Motor Normal bulk/tone No pronator or leg drift No tremors Strength 5/5 sym throughout Sens Intact to LT x4 No neglect or extinction Coord No dysmetria on FTN bilaterally No rebound or loss of adelaide DTRs 1+/4 sym throughout Toes downgoing bilaterally No clonus at achilles Gait Deferred NIHSS 0 Results - Laboratory Findings CBC and BMP: 01/29/19 14:08 01/29/19 14:08 Abnormal Lab Findings: Abnormal Labs 01/29/19 01/29/19 01/29/19 14:08 15:32 17:00 Sodium 135 L BUN 45 H Creatinine 2.74 H Glucose 133 H POC Glucose (mg/dL) 114 H Urine Appearance Cloudy H Urine Protein 1+ H Urine WBC 6 H Urine Bacteria Rare H Hyaline Casts 7 H Urine Mucus Rare H - Diagnostic Findings Additional findings: CT Head wo cont 01/29/19. Right frontal cortical and subcortical encephalomalacia with calcification. No ICH. Nil acute. MRI Brain w wo robles 02/06/18. Right frontal encephalomalacia with ex vacuo dilatation. No abnormal enhancement. Overall stable post-surgical changes. MRI brain w robles 10/20/15. Area of restricted diffusion in the right cortical and subcortical occipital area. Post-surgical changes in the right frontal area. I have reviewed neuroimages myself. Assessment and Plan Assessment: Constellation of non-specific neuro symptoms including headache, dizziness and blurred vision. Non-focal neuro exam. May be metabolic due to renal failure and hyperglycemia, but certainly given her extensive neurological and neurosurgical history, will pursue further detailed neuroimaging to r/o a primary acute neurological structural explanation. Plan: -MRI brain wo robles only given current creatinine -May obtain more stroke work-up pending MRI results -Continue aspirin and statin; fasting lipids in am -May treat BP to normotensive range but avoid hypotension -As for her poor STM, it may be due to metabolic derangements. Will send TSH and B12 in am -PT/OT/SP per protocol -Stroke education given to patient/ -DVT prophylaxis -d/w patient/ in detail. All questions answered. Thank you for this consultation. Please call with ?. Time with Patient: Greater than 30 (Time spent in direct patient care, greater than 50% of which was spent in [id number] counseling and coordination of care: 70 minutes)
[2019-01-29] MEDS: amLODIPine 10 MG TAB PO SCH (17:38)
[2019-01-29] MEDS: ATORVASTATIN 80 MG TAB PO SCH (20:04)
[2019-01-29] MEDS: lamoTRIgine 25 MG TAB PO SCH (20:05)
[2019-01-29] MEDS: SERTRALINE 100 MG TAB PO SCH (20:05)
[2019-01-29] MEDS: HYOSCYAMINE SULFATE 0.375 MG TAB.ER.12H PO SCH (20:05)
[2019-01-29] MEDS: INSULIN DETEMIR (LEVEMIR) 100 UNIT/ML SYR SQ SCH (20:10)
[2019-01-29 20:11] LABS: Glucose,Whole Blood 120 mg/dL (75-99)
[2019-01-29] MEDS ORDERED: NON FORMULARY DRUG (Rosuvastatin Calcium [Crestor] 40 MG) PO SCH (21:00)
[2019-01-30 01:57] LABS: Glucose,Whole Blood 107 mg/dL (75-99)
[2019-01-30 02:19] LABS: Hemoglobin A1C 14.3 % (4.0-6.0)
[2019-01-30 05:50] LABS: Glucose,Whole Blood 91 mg/dL (75-99)
[2019-01-30 07:08] LABS: Albumin 3.5 g/dL (3.5-5.0); Calcium 9.5 mg/dL (8.4-10.2); Potassium 4.4 mmol/L (3.5-5.1); Total Bilirubin 0.3 mg/dL (0.2-1.3); Total Protein 6.5 g/dL (6.3-8.2)
[2019-01-30] MEDS: INSULIN DETEMIR (LEVEMIR) 100 UNIT/ML SYR SQ SCH ×2 (08:05→21:04)
[2019-01-30] MEDS ORDERED: TRIAMTERENE-HCTZ 37.5-25MG 1 EACH TAB PO SCH (09:00)
[2019-01-30] MEDS ORDERED: LISINOPRIL 20 MG TAB PO SCH (09:00)
[2019-01-30] MEDS ORDERED: HYDROCHLOROTHIAZIDE 12.5 MG CAP PO SCH (09:00)
[2019-01-30] MEDS: HYOSCYAMINE SULFATE 0.375 MG TAB.ER.12H PO SCH ×2 (09:02→21:03)
[2019-01-30] MEDS: amLODIPine 10 MG TAB PO SCH (09:02)
[2019-01-30] MEDS: lamoTRIgine 25 MG TAB PO SCH ×2 (09:02→21:03)
[2019-01-30] MEDS: SERTRALINE 100 MG TAB PO SCH ×2 (09:02→21:03)
--- NOTE | 2019-01-30 09:07 | CONS ---
CONSULTATION REASON FOR CONSULT: Renal failure. HISTORY OF PRESENT ILLNESS: The patient is a 43-year-old female who was admitted to the hospital with symptoms of dizziness, some numbness. She has been evaluated by Neurology and is scheduled for an MRI. The patient has a history of astrocytoma, status post resection in 1994, being followed by Dr. Gonzales as outpatient. She has had chronic headaches. Recent workup showed ejection fraction at about 30%. The patient is being followed by Cardiology. She is maintained on anticoagulation as she was noted to have right occipital cortical and subcortical ischemic infarct in 2016. The patient denied any prior history of kidney diseases. Her creatinine was at 2.7 yesterday. It is down to 2.0 now. We have a creatinine 1.6 in June of 2018. In 2016, we have a creatinine of 0.9. The patient admits to taking Advil or Aleve on a daily basis. She is maintained on lisinopril. Blood pressure is currently not low. UA showed 1+ protein, no blood was seen. PAST MEDICAL HISTORY: History of astrocytoma, status post resection, history of embolic stroke with history of cardiomyopathy, EF 30% in 2016, maintained on anticoagulation. PAST SURGICAL HISTORY: Back surgery, cardiac catheterization, hysterectomy, tonsillectomy, uterine ablation, resection of astrocytoma in the brain, TEEs, colonoscopies. SOCIAL HISTORY: Negative for smoking, drug abuse or alcohol abuse. MEDICATIONS: Medications at home prior to admission included Levbid, lisinopril, lamotrigine, sertraline, metformin, Crestor, Norvasc, Actos, triamterene. ALLERGIES: None. PHYSICAL EXAMINATION: On examination, patient is currently comfortable, awake, alert, oriented x3, not in any acute distress. Blood pressure is 134/70, heart rate 75 per minute. She is afebrile. EXAMINATION OF THE HEART: S1, S2. EXAMINATION OF THE LUNGS: Bilateral breath sounds are heard. Abdomen is soft, nontender. INVENTORY TAKER exam is grossly intact. I do not appreciate any significant weakness in her extremities. LABS: Labs show sodium of 137, potassium 4.4, chloride 103, BUN 38, serum creatinine 2.04. UA shows 1+ protein from yesterday, no blood is seen. WBC is 6.0. ASSESSMENT: 1. Acute kidney injury, possibly related to use of nonsteroidal anti-inflammatory agents along with LANNY inhibitors. Blood pressure was not significantly low during this admission. Given the proteinuria, we need to workup for any underlying GN. I will check baseline serologies. I will also start the patient on IV fluids and repeat labs in a.m. Renal function is already improving. We will check for urine retention as well given her history of brain surgery and neurological symptoms. No nephrotoxic medications on board. Agree with checking MRI without gadolinium. 2. History of astrocytoma, status post resection of the tumor. 3. History of hypertension. Blood pressure fairly well controlled. However, I will hold off on the lisinopril given the significant acute kidney injury. Hold the hydrochlorothiazide as well for now. The patient is on Dyazide as well which we can continue. If the blood pressure remains elevated, we can add Coreg. Thank you for this consultation. We will continue to follow the patient with you during her hospitalization. TASHA / MIHAELA: [id number] /
[2019-01-30 11:23] LABS: Glucose,Whole Blood 119 mg/dL (75-99)
--- NOTE | 2019-01-30 11:40 | ECHOF ---
Referral Reason:Dizziness MEASUREMENTS -------- HEIGHT: 167.6 cm WEIGHT: 90.7 kg BP: 137/79 RVIDd: 3.5 cm (< 3.3) IVSd: 1.2 cm (0.6 - 1.1) LVIDd: 4.0 cm (3.9 - 5.3) LVPWd: 1.3 cm (0.6 - 1.1) IVSs: 1.6 cm LVIDs: 2.4 cm LVPWs: 1.8 cm LAESV Index (A-L): 22.52 ml/m Ao Diam: 2.9 cm (2.0 - 3.7) AV Cusp: 1.8 cm (1.5 - 2.6) LA Diam: 3.2 cm (2.7 - 3.8) EPSS: 0.4 cm MV E Peter: 1.10 m/s MV DecT: 187 ms MV A Peter: 0.85 m/s MV E/A Ratio: 1.30 AV maxP.47 mmHg AV meanP.02 mmHg RAP: 5.00 mmHg RVSP: 21.19 mmHg MV EF SLOPE: 91.86 mm/s (70 - 150) MV EXCURSION: 1.44 cm (> 18.000) FINDINGS -------- Sinus rhythm. This was a technically adequate study. The left ventricular size is normal. There is mild concentric left ventricular hypertrophy. Overa ll left ventricular systolic function is normal with, an EF between 55 - 60 %. The diastolic fillin g pattern is normal for the age of the patient. The right ventricle is mildly enlarged. Left atrium is normal size by volume. The right atrial size is normal. Interatrial and interventricular septum intact. The aortic valve is trileaflet, and appears structurally normal. No aortic stenosis or regurgitation. The mitral valve is normal. There is trace to mild mitral regurgitation. Mild tricuspid regurgitation present. There is no evidence of pulmonary hypertension. The right v entricular systolic pressure, as measured by Doppler, is 21.19mmHg. There is no pulmonic regurgitation present. The aortic root size is normal. IVC not well visualized There is no pericardial effusion. CONCLUSIONS -------- 1. Sinus rhythm. 2. The left ventricular size is normal. 3. There is mild concentric left ventricular hypertrophy. 4. Overall left ventricular systolic function is normal with, an EF between 55 - 60 %. 5. The diastolic filling pattern is normal for the age of the patient. 6. The right ventricle is mildly enlarged. 7. Left atrium is normal size by volume. 8. The aortic valve is trileaflet, and appears structurally normal. No aortic stenosis or regurgitati on. 9. There is trace to mild mitral regurgitation. 10. Mild tricuspid regurgitation present. 11. There is no evidence of pulmonary hypertension. 12. There is no pulmonic regurgitation present. 13. The aortic root size is normal. 14. IVC not well visualized 15. There is no pericardial effusion. ELECTRICAL DEVELOPMENT ENGINEER: Candy Triana RDCS
--- NOTE | 2019-01-30 11:44 | US ---
EXAMINATION TYPE: US kidneys/renal and bladder DATE OF EXAM: 01/30/2019 COMPARISON: NONE CLINICAL HISTORY: RF. Diabetic EXAM MEASUREMENTS: Right Kidney: 11.2 x 6.1 x 5.4 cm Left Kidney: 10.7 x 5.8 x 5.7 cm Post Void Residual Volume: 6.3 mL Right Kidney: No hydronephrosis or masses seen; hypoechoic crescent shaped area is seen adjacent to b ilateral renal cortex is noted as sonographic"sweat sign" which suggests renal failure. Left Kidney: No hydronephrosis or masses seen Bladder: wnl Bilateral Jets seen: yes Normal Post Void Residual: yes IMPRESSION: 1. Minimal fluid adjacent to the kidney can correlate with renal failure.
--- NOTE | 2019-01-30 11:46 | US ---
EXAMINATION TYPE: US carotid duplex BILAT DATE OF EXAM: 01/30/2019 COMPARISON: NONE CLINICAL HISTORY: Dizziness. Dizziness, blurred vision, headache, history of TIA EXAM MEASUREMENTS: RIGHT: Peak Systolic Velocity (PSV) cm/sec ----- Right CCA: 62.5 ----- Right ICA: 106.0 ----- Right ECA: 74.6 ICA/CCA ratio: 1.7 RIGHT: End Diastole cm/sec ----- Right CCA: 15.3 ----- Right ICA: 37.4 ----- Right ECA: 9.8 LEFT: Peak Systolic Velocity (PSV) cm/sec ----- Left CCA: 69.1 ----- Left ICA: 92.2 ----- Left ECA: 61.4 ICA/CCA ratio: 1.3 LEFT: End Diastole cm/sec ----- Left CCA: 21.9 ----- Left ICA: 40.6 ----- Left ECA: 10.9 VERTEBRALS (direction of flow): Right Vertebral: antegrade Left Vertebral: antegrade Rhythm: normal Mild plaque with no significant velocity elevations. IMPRESSION: Mild atheromatous plaquing without significant flow-limiting stenosis. Criteria for Assigning % of Stenosis / Diameter reduction (Estimation based on the indirect measurements of the internal carotid artery velocities (ICA PSV). 1. Normal (no stenosis)=ICA PSV < 125 cm/s: ratio < 2.0: ICA EDV<40 cm/s. 2. Less than 50% stenosis=ICA PSV < 125 cm/s: ratio < 2.0: ICA EDV<40 cm/s. 3. 50 to 69% stenosis=ICA PSV of 125 to 230 cm/s: ration 2.0 ? 4.0: ICA EDV 40-100 cm/s. 4. Greater than 70% stenosis to near occlusion= ICA PSV > 230 cm/s: ratio > 4.0: ICA EDV > 100 cm/s. 5. Near occlusion= ICA PSV velocities may be low or undetectable: variable ratio and ICA EDV. 6. Total occlusion=unable to detect flow.
[2019-01-30] MEDS: ASPIRIN 325 MG TAB PO SCH (11:54)
[2019-01-30] MEDS: SODIUM CHLORIDE 0.9% 1,000 ML IV SCH (11:55)
--- NOTE | 2019-01-30 13:05 | MR ---
EXAMINATION TYPE: MR brain wo con DATE OF EXAM: 01/30/2019 COMPARISON: 01/29/2019 CT brain, 02/06/2019 HISTORY: visual changes h/o occipital CVA+astrocytoma CONTRAST: Performed utilizing 0 mL intravenous Gadavist gadolinium contrast. TECHNIQUE: Multiplanar, multiecho imaging on a 3.0 Corinna magnet is performed through the brain. Stud y is performed within 24 hours of arrival to the hospital. Postsurgical changes are through the right frontal lobe. Cystic areas within the prior surgery site a re stable. The solid component areas appear smaller than comparison. Adjacent white matter findings c an be related to post radiation changes. The craniovertebral junction is normal. The pituitary is normal. Diffusion-weighted imaging is performed. There is a faint slightly hyperintense signal superior to t he left lateral ventricle on diffusion-weighted imaging. A small focus of ischemic change could be co nsidered. This would be acute ischemic change. There are additional scattered punctate areas of hyperintensity on T2 and Inversion Recovery weighted sequences which are non-specific but can be related to microvascular ischemic changes. White matter changes adjacent to the surgery site can be postradiation changes. Calcified meningioma may be along the anterior right falx. No significant mass effect on the adjacent brain is evident. Ventricles and sulci are appropriate for the patient age. Ex vacuo effect is evident at the surgery s ite. IMPRESSIONS: 1. Postsurgical changes within the right frontal lobe compatible with the patient's reported surgery. Findings appear improved from February 2018. Recurrent mass is not identified. 2. There is a punctate white matter change in the left centrum semiovale above the anterior horn late ral ventricle compatible with acute ischemic change.
[2019-01-30 13:38] VITALS: BMI 32.3
--- NOTE | 2019-01-30 14:31 | P.PN ---
Subjective Progress Note Date: 01/30/19 Principal diagnosis: Headache, dizziness, blurred vision and memory loss MRI Brain. Carotid duplex. TTE. Patient is supposed but typically does not take aspirin. She is now since hospitalized. She does take atorvastatin 80mg po qhs. Nephrology consult. Vision still a bit blurred and her brain feels foggy. Head not as achy as yesterday. No other neuro c/o. Objective - Vital Signs Vital signs: Vital Signs Temp 98.3 F 01/30/19 08:00 Pulse 80 01/30/19 11:53 Resp 16 01/30/19 11:53 BP 138/77 01/30/19 11:53 Pulse Ox 99 01/30/19 11:53 Intake & Output 01/29/19 01/30/19 01/30/19 18:59 06:59 18:59 Intake Total 240 462 Balance 240 462 Weight 92.17 kg 90.9 kg 90.9 kg Intake: Oral 240 462 Other: # Voids 1 - Exam Gen NAD Pleasant and cooperative MS A+Ox4 Normal speech CN II-XII grossly intact no nystagmus Motor Normal bulk/tone No drift or tremors Strength 5/5 sym throughout Sens Intact to LT x4 No neglect Coord No dysmetria on FTN bilaterally DTRs 1+/4 sym throughout Gait Deferred NIHSS 0 - Labs CBC & Chem 7: 01/29/19 14:08 01/30/19 06:14 Labs: Abnormal Lab Results - Last 24 Hours (Table) 01/29/19 01/29/19 01/29/19 Range/Units 14:08 14:08 15:32 Sodium 135 L (137-145) mmol/L BUN 45 H (7-17) mg/dL Creatinine 2.74 H (0.52-1.04) mg/dL Glucose 133 H (74-99) mg/dL POC Glucose (mg/dL) (75-99) mg/dL Hemoglobin A1c 14.3 H (4.0-6.0) % Triglycerides (<150) mg/dL HDL Cholesterol (40-60) mg/dL Urine Appearance Cloudy H (Clear) Urine Protein 1+ H (Negative) Urine WBC 6 H (0-5) /hpf Urine Bacteria Rare H (None) /hpf Hyaline Casts 7 H (0-2) /lpf Urine Mucus Rare H (None) /hpf 01/29/19 01/29/19 01/30/19 Range/Units 17:00 20:10 01:56 Sodium (137-145) mmol/L BUN (7-17) mg/dL Creatinine (0.52-1.04) mg/dL Glucose (74-99) mg/dL POC Glucose (mg/dL) 114 H 120 H 107 H (75-99) mg/dL Hemoglobin A1c (4.0-6.0) % Triglycerides (<150) mg/dL HDL Cholesterol (40-60) mg/dL Urine Appearance (Clear) Urine Protein (Negative) Urine WBC (0-5) /hpf Urine Bacteria (None) /hpf Hyaline Casts (0-2) /lpf Urine Mucus (None) /hpf 01/30/19 01/30/19 Range/Units 06:14 11:22 Sodium (137-145) mmol/L BUN 38 H (7-17) mg/dL Creatinine 2.04 H (0.52-1.04) mg/dL Glucose (74-99) mg/dL POC Glucose (mg/dL) 119 H (75-99) mg/dL Hemoglobin A1c (4.0-6.0) % Triglycerides 363 H (<150) mg/dL HDL Cholesterol 37 L (40-60) mg/dL Urine Appearance (Clear) Urine Protein (Negative) Urine WBC (0-5) /hpf Urine Bacteria (None) /hpf Hyaline Casts (0-2) /lpf Urine Mucus (None) /hpf - Imaging and Cardiology MRI Brain wo robles 01/30/19. Punctate white matter change in the left centrum semiovale ovale above the anterior horn of the lateral ventricle suspicious for acute ischemia. Bilateral subcortical and periventricular white matter changes on T2/FLAIR consistent with chronic small vessel disease. Post surgical changes within the right frontal lobe compatible with her previous surgery. No changes compared with her 02/2018 study. No other acute intracranial changes are seen. Carotid duplex 01/30/19. Mild atheromatous plaquing without hemodynamically significant stenosis in the anterior circulation. Antegrade flow seen in both vertebral arteries. TTE 01/30/19. LV size normal. Mild concentric LVH. EF 55-60%. normal diastolic filling pattern. Mildly enlarged RV. Normal LA size. Tr to mild MR, mild TR. No [place] or pulmonary hypertension. I have reviewed neuroimages myself. Assessment and Plan Assessment: Constellation of non-specific neuro symptoms including headache, dizziness and blurred vision. Non-focal neuro exam. Suspect metabolic syndrome due to renal failure and hyperglycemia and possibly confounded by borderline low B12. She has an incidental punctate area of acute intracranial ischemia in the left centrum semiovale that is most likely due to small vessel disease from uncontrolled diabetes; this very area of ischemic infarct would not explain her neuro symptoms. Plan: -MRI brain, carotid duplex and TTE and lab results d/w patient -ASA 81mg/day -LDL 73 nearly at goal <70. Continue atorvastatin 80mg po qhs -May treat BP to normotensive range but avoid hypotension -B12 <400; start B12 1000mcg/day. Will give one dose of parenteral replacement while in-house -PT/OT/SP per protocol -DVT prophylaxis -Follow up with Dr. Gonzales in outpatient neurology in 1-2 weeks -d/w patient in detail. All questions answered -Patient's inpatient neuro work-up is complete. No other neuro recs at this time. Will revisit patient prn. Please call with new ?. Thank you again for this consultation. Time with Patient: Less than 30 (Time spent in direct patient care, greater than 50% of which was spent in [id number] counseling and coordination of care: 25 minutes)
[2019-01-30] MEDS ORDERED: CYANOCOBALAMIN 1,000 MCG/ML 1 ML VIAL IM ONE (15:00)
[2019-01-30] MEDS ORDERED: ASPIRIN 325 MG TAB PO SCH (15:20)
[2019-01-30 16:32] LABS: Glucose,Whole Blood 195 mg/dL (75-99)
[2019-01-30 18:59] LABS: DNA Double-Stranded NEGATIVE (NEGATIVE)
[2019-01-30 20:25] LABS: Glucose,Whole Blood 306 mg/dL (75-99)
[2019-01-30] MEDS: ATORVASTATIN 80 MG TAB PO SCH (21:03)
[2019-01-30] MEDS: INSULIN ASPART (NovoLOG) 100 UNIT/ML VIAL SQ SCH (21:04)
--- NOTE | 2019-01-30 21:11 | P.HPIM ---
History of Present Illness H&P Date: 01/30/19 this a 43-year-old white female is admitted to the hospital witha few days of blurred vision confusion and not feeling herself. She's got significant neurological history started with the brain tumor in 1994 that was benign. She's had 2 strokes on 2 different occasions after the surgery. She hasn't had anything as a recent but states she has general malaise and fatigue and not feeling herself. She denies any nausea vomiting diarrhea constipation she denies any recent change in medications or [id number] preparations. Review of Systems GENERAL: Patient denies fever. Denies chills. EYES: admits to blurred and vision changes. Denies eye pain. EARS, NOSE, MOUTH, & THROAT: Denies headache. Denies sore throat. Denies ear pain. RESPIRATORY: Denies cough. Denies shortness of breath. Denies sputum production. Denies hemoptysis. CARDIOVASCULAR: Denies chest pain or pressure. Denies palpitations. Denies arrhythmias. GASTROINTESTINAL: Denies abdominal pain. Denies diarrhea. Denies constipation. Denies nausea. Denies vomiting. Denies heartburn. Denies blood in the stool. GENITOURINARY: Denies urinary frequency. Denies burning. Denies dysuria. Denies cloudy urine. Denies blood in the urine. MUSCULOSKELETAL: Denies myalgias. Denies joint swelling. Denies decreased range of motion beyond patients baseline. INTEGUMENTARY: Denies pruitis. Denies rash. PSYCHIATRIC: Denies suicidal or homicial ideations. ENDOCRINE: Denies weight change. Denies polydipsia. Denies polyuria. HEMATOLOGIC: Denies bleeding disorders. 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 CVA=L sided weakness, IDDM type II, takosubo syndrome in 2016, IBS, chronic low back pain occasional numbness/tingling/pain down L leg Last Myocardial Infarction Date:: 2016 takosubo History of Any Multi-Drug Resistant Organisms: None Reported Past Surgical History: Back Surgery, Heart Catheterization, Hysterectomy, Tonsillectomy, Uterine Ablation Additional Past Surgical History / Comment(s): 1994 R sided brain tumor resection, low back surgery, colonoscopies, STEFF Past Anesthesia/Blood Transfusion Reactions: No Reported Reaction, Family History of Problems w/ Anesthesia Additional Past Anesthesia/Blood Transfusion Reaction / Comment(s): MOTHER SLOW TO AWAKEN Past Psychological History: Anxiety, Depression Additional Psychological History / Comment(s): Pt resides alone. She is independent. She uses no assistive devices. Smoking Status: Never smoker Past Alcohol Use History: Rare Past Drug Use History: None Reported - Past Family History Father Family Medical History: Cancer, Diabetes Mellitus, Deep Vein Thrombosis (DVT), Hypertension, Prostate Disorder Additional Family Medical History / Comment(s): PROSTATE CANCER Mother Family Medical History: COPD, Diabetes Mellitus, Hypertension, Respiratory Disorder Additional Family Medical History / Comment(s): Pulmonary fibrosis. Medications and Allergies Home Medications Medication Instructions Recorded Confirmed Type Hyoscyamine Sulfate [Levbid] 0.375 mg PO BID 10/19/15 01/29/19 History Lisinopril 40 mg PO DAILY 10/19/15 01/29/19 History Sertraline HCl 100 mg PO BID 10/19/15 01/29/19 History lamoTRIgine [Lamotrigine] 25 mg PO BID 10/19/15 01/29/19 History metFORMIN HCL 1,000 mg PO BID 10/19/15 01/29/19 History Ergocalciferol (Vitamin D2) 50,000 unit PO WE 10/30/17 01/29/19 History [Vitamin D2] Rosuvastatin Calcium [Crestor] 40 mg PO HS 10/30/17 01/29/19 History amLODIPine [Norvasc] 10 mg PO DAILY 10/30/17 01/29/19 History Hydrochlorothiazide 12.5 mg PO DAILY 01/29/19 01/29/19 History Insulin Glargine [Lantus] 45 unit SQ BID 01/29/19 01/29/19 History Liraglutide [Victoza 3-Kapil] 1.8 mg SQ DAILY 01/29/19 01/29/19 History Pioglitazone [Actos] 15 mg PO DAILY 01/29/19 01/29/19 History Pioglitazone [Actos] 15 mg PO DAILY 01/29/19 01/29/19 History Triamterene/Hydrochlorothiazid 1 tab PO DAILY 01/29/19 01/29/19 History [Triamterene-Hctz 37.5-25 mg Tb] Vortioxetine Hydrobromide 10 mg PO DAILY 01/29/19 01/29/19 History [Trintellix] Allergies Allergy/AdvReac Type Severity Reaction Status Date / Time No Known Allergies Allergy Verified 01/29/19 12:40 Physical Exam Osteopathic Statement: *. No significant issues noted on an osteopathic structural exam other than those noted in the History and Physical/Consult. Vitals: Vital Signs Temp Pulse Resp BP Pulse Ox 01/30/19 16:00 88 16 121/78 98 01/30/19 11:53 80 16 138/77 99 01/30/19 08:00 98.3 F 80 16 137/79 97 01/30/19 04:00 97.6 F 75 18 134/70 95 01/29/19 23:41 79 18 148/72 97 Intake and Output 01/30/19 01/30/19 01/30/19 06:59 14:59 22:59 Intake Total 942 222 Balance 942 222 Intake: Oral 942 222 Other: # Voids 1 2 Weight 90.9 kg 90.9 kg GENERAL: This is a -43year-old in no apparent distress at the time of examination. Pleasant and cooperative. HEENT: Head is atraumatic, normocephalic. Pupils are equal, round, and reactive to light. Sclerae anicteric. Conjunctivae are clear. Mucus membranes of the m outh are moist. Neck is supple. RESPIRATORY: Clear to auscultation. No wheezes, rales, or rhonchi. No use of accessory muscles. Patient maintaining oxygen saturation greater than 92%. No chest wall tenderness is noted on palpation or with deep breathing. CARDIOVASCULAR: Regular rate and rhythm. S1 and S2 noted. No systolic or diastolic murmur auscultated. No JVD noted. No S3 or S4 noted. GASTROINTESTINAL: No distention noted. Abdomen soft and round. Normal active bowel sounds auscultated x 4 quadrants. No pain or tenderness noted upon palpation. INTEGUMENTARY: No cyanosis. No jaundice. No rashes noted. No cellulitis noted. EXTREMITIES: 2+ peripheral pulses. No evidence of peripheral edema. No calf tenderness noted. NEUROLOGIC: Cranial nerves II-XII intact. PSYCHIATRIC: Awake, alert, and oriented X 3. Appropriate affect. Intact judgement and insight. Results CBC & Chem 7: 01/29/19 14:08 01/30/19 06:14 Labs: Abnormal Lab Results - Last 24 Hours (Table) 01/29/19 01/30/19 01/30/19 Range/Units 14:08 01:56 06:14 BUN 38 H (7-17) mg/dL Creatinine 2.04 H (0.52-1.04) mg/dL POC Glucose (mg/dL) 107 H (75-99) mg/dL Hemoglobin A1c 14.3 H (4.0-6.0) % Triglycerides 363 H (<150) mg/dL HDL Cholesterol 37 L (40-60) mg/dL 01/30/19 01/30/19 01/30/19 Range/Units 11:22 16:30 20:14 BUN (7-17) mg/dL Creatinine (0.52-1.04) mg/dL POC Glucose (mg/dL) 119 H 195 H 306 H (75-99) mg/dL Hemoglobin A1c (4.0-6.0) % Triglycerides (<150) mg/dL HDL Cholesterol (40-60) mg/dL Thrombosis Risk Factor Assmnt - Choose All That Apply Any of the Below Risk Factors Present?: Yes Each Factor Represents 1 point: Age 41-60 years, Obesity (BMI >25) Other Risk Factors: Yes Each Risk Factor Represents 3 Points: Family history of DVT/PE Other congenital or acquired thrombophilia - If yes, enter type in comment: No Each Risk Factor Represents 5 Points: Stroke (< 1 month) Thrombosis Risk Factor Assessment Total Risk Factor Score: 10 Thrombosis Risk Factor Assessment Level: High Risk Assessment and Plan (1) Insulin-requiring or dependent type II diabetes mellitus Current Visit: Yes Status: Acute Code(s): E11.9 - TYPE 2 DIABETES MELLITUS WITHOUT COMPLICATIONS; Z79.4 - JAIL (CURRENT) USE OF INSULIN SNOMED Code(s): 215338670 (2) ARF (acute renal failure) Current Visit: Yes Status: Acute Code(s): N17.9 - ACUTE KIDNEY FAILURE, UNSPECIFIED SNOMED Code(s): 89167437 (3) CVA (cerebral vascular accident) Current Visit: Yes Status: Acute Onset Date: 10/20/15 Code(s): I63.9 - CEREBRAL INFARCTION, UNSPECIFIED SNOMED Code(s): 356084242 (4) Headache Current Visit: No Status: Acute Code(s): R51 - HEADACHE SNOMED Code(s): 36562065 Plan: admit patient for neurological consultation and progress will also ask nephrology to see patient regarding acutekidney injury and acute renal failure. Patient denies any prior knowledge of any type of kidney problems or heart failure.
[2019-01-31] MEDS: SODIUM CHLORIDE 0.9% 1,000 ML IV SCH (05:49)
[2019-01-31] MEDS: INSULIN ASPART (NovoLOG) 100 UNIT/ML VIAL SQ SCH ×2 (06:22→11:55)
[2019-01-31 06:25] LABS: Glucose,Whole Blood 78 mg/dL (75-99)
[2019-01-31 06:41] LABS: Albumin 3.4 g/dL (3.5-5.0); Calcium 9.7 mg/dL (8.4-10.2); Potassium 4.7 mmol/L (3.5-5.1); Total Bilirubin 0.3 mg/dL (0.2-1.3); Total Protein 6.3 g/dL (6.3-8.2)
[2019-01-31] MEDS: INSULIN DETEMIR (LEVEMIR) 100 UNIT/ML SYR SQ SCH (07:09)
[2019-01-31 08:23] LABS: Glucose,Whole Blood 256 mg/dL (75-99)
[2019-01-31 08:37] VITALS: RESP 16; TEMP 98.1
[2019-01-31] MEDS: lamoTRIgine 25 MG TAB PO SCH (08:42)
[2019-01-31] MEDS: ASPIRIN 325 MG TAB PO SCH (08:42)
[2019-01-31] MEDS: amLODIPine 10 MG TAB PO SCH (08:42)
[2019-01-31] MEDS: HYOSCYAMINE SULFATE 0.375 MG TAB.ER.12H PO SCH (08:42)
[2019-01-31] MEDS: SERTRALINE 100 MG TAB PO SCH (08:48)
--- NOTE | 2019-01-31 09:55 | P.DS ---
Providers Date of admission: 01/29/19 15:16 Attending physician: Heath Morrow Consults: 01/29/19 15:16 Consult Physician Routine Consulting Provider: Paul Girard Consult Reason/Comments: cva Do you want consulting provider notified?: Yes 01/29/19 15:20 Consult Physician Routine Consulting Provider: Aditya Martínez Consult Reason/Comments: arf Do you want consulting provider notified?: Yes Primary care physician: Heath Morrow Hospital Course: 41-year-old was admitted secondary to blurry vision, and some other nonspecific neurological symptoms, patient can use to compare blurry vision although all the stroke workup is negative including MRI carotid Doppler echocardiogram. Patient will be discharged today with the baby aspirin patient will continue her statin patient clearly is 71. Patient has acute renal failure which is secondary to a similar better therapy, hypotension and diuretic therapy her diuretics and LANNY inhibitor as were discontinued patient will benefit from long-term LANNY inhibitor as was her creatinine improves. Patient's kidney function is improving with IV fluids with disc herniation of these medications it's expected to improve because of which patient can be discharged today probably after evaluation by nephrology, ultrasound of the kidneys consistent with some chronic renal disease although I cannot stage her chronic kidney disease at this time. Patient will f ollow-up with primary care physician, ophthalmology and neurology as an outpatient repeat basic metabolic profile was ordered for 3 days. She does have diabetes mellitus metformin will be discontinued because of renal dysfunction, medications will be continued. Patient blood sugars are bit elevated today because she is not receiving with toes of which she was on at home. PHYSICAL EXAMINATION: GENERAL: The patient is alert and oriented x3, not in any acute distress. Well developed, well nourished. HEENT: Pupils are round and equally reacting to light. EOMI. No scleral icterus. No conjunctival pallor. Normocephalic, atraumatic. No pharyngeal erythema. No thyromegaly. CARDIOVASCULAR: S1 and S2 present. No murmurs, rubs, or gallops. PULMONARY: Chest is clear to auscultation, no wheezing or crackles. ABDOMEN: Soft, nontender, nondistended, normoactive bowel sounds. No palpable organomegaly. MUSCULOSKELETAL: No joint swelling or deformity. EXTREMITIES: No cyanosis, clubbing, or pedal edema. NEUROLOGICAL: Gross neurological examination did not reveal any focal deficits. SKIN: No rashes. Further chronic medical problems hospital physician course please refer to dictation of H&P and from Dr. Morrow Patient Condition at Discharge: Fair Plan - Discharge Summary Discharge Rx Participant: No New Discharge Prescriptions: New Aspirin 81 mg PO DAILY #30 chewable Discontinued Lisinopril 40 mg PO DAILY metFORMIN HCL 1,000 mg PO BID Triamterene/Hydrochlorothiazid [Triamterene-Hctz 37.5-25 mg Tb] 1 tab PO DAILY No Action lamoTRIgine [Lamotrigine] 25 mg PO BID Sertraline HCl 100 mg PO BID Hyoscyamine Sulfate [Levbid] 0.375 mg PO BID amLODIPine [Norvasc] 10 mg PO DAILY Ergocalciferol (Vitamin D2) [Vitamin D2] 50,000 unit PO WE Rosuvastatin Calcium [Crestor] 40 mg PO HS Hydrochlorothiazide 12.5 mg PO DAILY Insulin Glargine [Lantus] 45 unit SQ BID Pioglitazone [Actos] 15 mg PO DAILY Vortioxetine Hydrobromide [Trintellix] 10 mg PO DAILY Liraglutide [Victoza 3-Kapil] 1.8 mg SQ DAILY Pioglitazone [Actos] 15 mg PO DAILY Discharge Medication List Hyoscyamine Sulfate [Levbid] 0.375 mg PO BID 10/19/15 [History] Sertraline HCl 100 mg PO BID 10/19/15 [History] lamoTRIgine [Lamotrigine] 25 mg PO BID 10/19/15 [History] Ergocalciferol (Vitamin D2) [Vitamin D2] 50,000 unit PO WE 10/30/17 [History] Rosuvastatin Calcium [Crestor] 40 mg PO HS 10/30/17 [History] amLODIPine [Norvasc] 10 mg PO DAILY 10/30/17 [History] Hydrochlorothiazide 12.5 mg PO DAILY 01/29/19 [History] Insulin Glargine [Lantus] 45 unit SQ BID 01/29/19 [History] Liraglutide [Victoza 3-Kapil] 1.8 mg SQ DAILY 01/29/19 [History] Pioglitazone [Actos] 15 mg PO DAILY 01/29/19 [History] Pioglitazone [Actos] 15 mg PO DAILY 01/29/19 [History] Vortioxetine Hydrobromide [Trintellix] 10 mg PO DAILY 01/29/19 [History] Aspirin 81 mg PO DAILY #30 chewable 01/31/19 [Rx] Follow up Appointment(s)/Referral(s): Heath Morrow DO [Primary Care Provider] - 3 Days Flynn Gonzales MD [Medical Doctor] - 2 Weeks (office will call with appointment) Ambulatory/Diagnostic Orders: Basic Metabolic Panel [LAB.AMB] Time Frame: 3 Days, Location: None Selected Patient Instructions/Handouts: Acute Kidney Injury (DC), Stroke (DC) Discharge Disposition: HOME SELF-CARE
[2019-01-31 11:44] LABS: Glucose,Whole Blood 90 mg/dL (75-99)
[2019-01-31 11:55] VITALS: BP 136/79; PULSE 69
--- NOTE | 2019-01-31 13:05 | P.PN ---
Subjective Progress Note Date: 01/31/19 Seen and examined for the follow-up of acute kidney injury. Clinically improved. No nausea vomiting diarrhea. Blood pressures much better today. Objective - Vital Signs Vital signs: Vital Signs Temp 98.1 F 01/31/19 08:00 Pulse 69 01/31/19 11:54 Resp 16 01/31/19 11:54 BP 136/79 01/31/19 11:54 Pulse Ox 98 01/31/19 11:54 Intake & Output 01/30/19 01/31/19 01/31/19 18:59 06:59 18:59 Intake Total 1164 236 Balance 1164 236 Weight 90.9 kg 90 kg Intake: Oral 1164 236 Other: Voiding Method Toilet # Voids 2 0 - Exam No acute distress S1-S2 heard Lungs clear No edema - Labs CBC & Chem 7: 01/29/19 14:08 01/31/19 06:05 Labs: Abnormal Lab Results - Last 24 Hours (Table) 01/30/19 01/30/19 01/31/19 Range/Units 16:30 20:14 06:05 BUN 32 H (7-17) mg/dL Creatinine 1.76 H (0.52-1.04) mg/dL POC Glucose (mg/dL) 195 H 306 H (75-99) mg/dL Albumin 3.4 L (3.5-5.0) g/dL 01/31/19 Range/Units 08:22 BUN (7-17) mg/dL Creatinine (0.52-1.04) mg/dL POC Glucose (mg/dL) 256 H (75-99) mg/dL Albumin (3.5-5.0) g/dL Assessment and Plan Assessment: #1 nonoliguric acute kidney injury secondary to hemodynamic ATN with low blood pressures. Concomitant use of NSAIDs and LANNY inhibitor's. #2 cardiomyopathy with EF of 30% #3 hypotension resolved #4 metabolic alkalosis #4 suspected CK D3 with a baseline creatinine of 1.1-1.6. Plan: #1 renal function improving. Anticipate to get better in next few days. #2 hold LANNY inhibitor's at this time. She needs it for underlying cardiomyopathy can be restarted as outpatient based on renal function. #3 advised to avoid NSAIDs. #4 stable from nephrology for discharge to be followed up in the clinic in a week
[2019-02-02 14:07] LABS: C-ANCA <1:20 Titer (<1:20)
== END 2019-01-31 14:03 | disposition home or self-care (01) | DRG 683 ==
LOC: EC 12:26 → 3SCARD 15:16
PROVIDERS: ADMIT Family Medicine; ATTEND Family Medicine
DX: N17.0 Acute kidney failure with tubular necrosis (principal); E87.3 Alkalosis; I42.9 Cardiomyopathy, unspecified; I67.82 Cerebral ischemia; I69.354 Hemiplegia and hemiparesis following cerebral infarction affecting left non-dominant side; N18.3 Chronic kidney disease, stage 3 (moderate); E11.22 Type 2 diabetes mellitus with diabetic chronic kidney disease; E11.51 Type 2 diabetes mellitus with diabetic peripheral angiopathy without gangrene; E88.81 Metabolic syndrome and other insulin resistance; I95.9 Hypotension, unspecified; E11.65 Type 2 diabetes mellitus with hyperglycemia; E78.5 Hyperlipidemia, unspecified; F32.9 Major depressive disorder, single episode, unspecified; F41.9 Anxiety disorder, unspecified; I69.398 Other sequelae of cerebral infarction; R51 Headache; I12.9 Hypertensive chronic kidney disease with stage 1 through stage 4 chronic kidney disease, or unspecified chronic kidney disease; I25.2 Old myocardial infarction; K58.9 Irritable bowel syndrome, unspecified; G89.29 Other chronic pain; H53.8 Other visual disturbances; M54.5 Low back pain; T39.395A Adverse effect of other nonsteroidal anti-inflammatory drugs [NSAID], initial encounter; T46.4X5A Adverse effect of angiotensin-converting-enzyme inhibitors, initial encounter; E53.8 Deficiency of other specified B group vitamins; Z79.4 Long term (current) use of insulin; Z79.82 Long term (current) use of aspirin; Z79.899 Other long term (current) drug therapy; Z90.710 Acquired absence of both cervix and uterus; Z86.011 Personal history of benign neoplasm of the brain; Z82.49 Family history of ischemic heart disease and other diseases of the circulatory system; Z82.5 Family history of asthma and other chronic lower respiratory diseases; Z83.3 Family history of diabetes mellitus; Z80.42 Family history of malignant neoplasm of prostate
CPT/HCPCS: 36415; 70450; 70551; 76770; 80053; 80061; 81001; 82550; 82607; 83036; 84443; 84484; 85025; 85610; 85730; 86038; 86160; 86225; 86255; 86335; 93005; 93306; 93880; 96360; 96361; 99285

== ENCOUNTER 2019-03-14 19:05 | Emergency (ER) | payer OTHER ==
[2019-03-14 19:13] VITALS: BP 214/100; PULSE 97; RESP 20; TEMP 98.2
[2019-03-14] MEDS ORDERED: GELATIN SPONGE,ABSORB (LARGE) 1 EACH SPONGE TOPICAL STA (19:26)
[2019-03-14] MEDS ORDERED: GELATIN SPONGE,ABSORB (SMALL) 1 EACH SPONGE TOPICAL STA (19:44)
--- NOTE | 2019-03-14 20:16 | ED ---
General Adult HPI - General Chief complaint: Wound/Laceration Stated complaint: left thumb lac Time Seen by Provider: 03/14/19 19:14 Source: patient Mode of arrival: ambulatory Limitations: no limitations - History of Present Illness Initial comments: Patient is a 43-year-old female presenting to the emergency room with a chief complaint of a skin laceration on the left first digit. Patient reports that incident occurred several hours ago and it will not stop bleeding. Patient states she only takes aspirin or blood thinners. Patient reports his tetanus status is up-to-date. Patient reports full range of motion at thumb. Patient reports applying pressure however continued to bleed. Patient reports minimal pain at the site of injury. - Related Data Home Medications Medication Instructions Recorded Confirmed Hyoscyamine Sulfate [Levbid] 0.375 mg PO BID 10/19/15 01/29/19 Sertraline HCl 100 mg PO BID 10/19/15 01/29/19 lamoTRIgine [Lamotrigine] 25 mg PO BID 10/19/15 01/29/19 Ergocalciferol (Vitamin D2) 50,000 unit PO WE 10/30/17 01/29/19 [Vitamin D2] Rosuvastatin Calcium [Crestor] 40 mg PO HS 10/30/17 01/29/19 amLODIPine [Norvasc] 10 mg PO DAILY 10/30/17 01/29/19 Hydrochlorothiazide 12.5 mg PO DAILY 01/29/19 01/29/19 Insulin Glargine [Lantus] 45 unit SQ BID 01/29/19 01/29/19 Liraglutide [Victoza 3-Kapil] 1.8 mg SQ DAILY 01/29/19 01/29/19 Pioglitazone [Actos] 15 mg PO DAILY 01/29/19 01/29/19 Pioglitazone [Actos] 15 mg PO DAILY 01/29/19 01/29/19 Vortioxetine Hydrobromide 10 mg PO DAILY 01/29/19 01/29/19 [Trintellix] Previous Rx's Medication Instructions Recorded Aspirin 81 mg PO DAILY #30 chewable 01/31/19 Allergies Allergy/AdvReac Type Severity Reaction Status Date / Time No Known Allergies Allergy Verified 03/14/19 19:13 Review of Systems ROS Statement: Those systems with pertinent positive or pertinent negative responses have been documented in the HPI. ROS Other: All systems not noted in ROS Statement are negative. 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 CVA=L sided weakness, IDDM type II, takosubo syndrome in 2016, IBS, chronic low back pain occasional numbness/tingling/pain down L leg Last Myocardial Infarction Date:: 2016 takosubo History of Any Multi-Drug Resistant Organisms: None Reported Past Surgical History: Back Surgery, Heart Catheterization, Hysterectomy, Tonsillectomy, Uterine Ablation Additional Past Surgical History / Comment(s): 1994 R sided brain tumor resection, low back surgery, colonoscopies, STEFF Past Anesthesia/Blood Transfusion Reactions: No Reported Reaction, Family History of Problems w/ Anesthesia Additional Past Anesthesia/Blood Transfusion Reaction / Comment(s): MOTHER SLOW TO AWAKEN Past Psychological History: Anxiety, Depression Smoking Status: Never smoker Past Alcohol Use History: Rare Past Drug Use History: None Reported - Past Family History Father Family Medical History: Cancer, Diabetes Mellitus, Deep Vein Thrombosis (DVT), Hypertension, Prostate Disorder Additional Family Medical History / Comment(s): PROSTATE CANCER Mother Family Medical History: COPD, Diabetes Mellitus, Hypertension, Respiratory Diso rder Additional Family Medical History / Comment(s): Pulmonary fibrosis. General Exam Limitations: no limitations General appearance: alert, in no apparent distress Head exam: Present: atraumatic, normocephalic, normal inspection Eye exam: Present: normal appearance Pupils: Present: normal accommodation ENT exam: Present: normal exam Neck exam: Present: normal inspection, full ROM Respiratory exam: Present: normal lung sounds bilaterally Cardiovascular Exam: Present: regular rate, normal rhythm, normal heart sounds Extremities exam: Present: full ROM, normal capillary refill, other (+2 ulnar and radial pulses bilaterally.). Absent: normal inspection (Small avulsion measuring approximately 0.5 cm 0.5 cm on the palmar aspect of the left first digit. Some active bleeding. No signs of infection), tenderness Back exam: Present: normal inspection, full ROM Neurological exam: Present: alert, oriented X3 Psychiatric exam: Present: normal affect, normal mood Skin exam: Present: warm, dry, intact, normal color Course Vital Signs 03/14/19 19:10 Temperature 98.2 F Pulse Rate 97 Respiratory 20 Rate Blood Pressure 214/100 O2 Sat by Pulse 99 Oximetry Medical Decision Making - Medical Decision Making patient is a 43-year-old female presenting to the emergency department with a chief complaint of a laceration. Physical examinations indicative of a very small avulsion that appears to continue to bleed on the palmar aspect of the left first digit. Gelfoam applied with a Band-Aid. Patient given instructions on the Gelfoam. No signs of infection. Strict return parameters were thoroughly discussed the patient was understanding and agreeable. Tetanus status up-to-date. Case discussed physician. Disposition Clinical Impression: Avulsion of skin of finger Disposition: HOME SELF-CARE Condition: Stable Instructions (If sedation given, give patient instructions): Skin Avulsion (ED) Additional Instructions: Please follow proper wound care instructions. Please return to emergency department if symptoms worsen. Is patient prescribed a controlled substance at d/c from ED?: No Referrals: Heath Morrow DO [Primary Care Provider] - 1-2 days Time of Disposition: 20:18
== END 2019-03-14 20:30 | disposition home or self-care (01) ==
LOC: EC 19:05
DX: S61.002A Unspecified open wound of left thumb without damage to nail, initial encounter (principal); E11.9 Type 2 diabetes mellitus without complications; I10 Essential (primary) hypertension; E78.5 Hyperlipidemia, unspecified; I25.2 Old myocardial infarction; F41.9 Anxiety disorder, unspecified; F32.9 Major depressive disorder, single episode, unspecified; Z79.4 Long term (current) use of insulin; Z79.899 Other long term (current) drug therapy; Z86.73 Personal history of transient ischemic attack (TIA), and cerebral infarction without residual deficits; X58.XXXA Exposure to other specified factors, initial encounter
CPT/HCPCS: 99282

== ENCOUNTER → 2021-05-09 | Outpatient (CLI) | payer OTHER ==
--- NOTE | 2021-05-09 10:36 | NM ---
EXAMINATION TYPE: NM hepatobiliary w EF DATE OF EXAM: 05/09/2021 COMPARISON: NONE HISTORY: K 81.1, chronic cholecystitis TECHNIQUE: After the intravenous administration of 5.4 mCi Tc 99m Mebrofenin hepatobiliary scintigrap hy is performed. Immediate images post injection. FINDINGS: There is satisfactory initial accumulation of tracer by the liver. The gallbladder is visualized wit hin 6 minutes. The small bowel activity is noted within 14 minutes. At one hour 8 ounces of oral en sure plus is given to mimic CCK and gallbladder ejection fraction is calculated at 97 %, above the up per limit of the normal range. Therefore there is no scintigraphic evidence of cystic or common bile duct obstruction to suggest acute cholecystitis. IMPRESSION: Findings may represent hyperdynamic gallbladder
== END | disposition home or self-care (01) ==
LOC: RADNMMAIN 06:50
PROVIDERS: ATTEND Surgery Plastic and Reconstructive Surgery
DX: K81.1 Chronic cholecystitis (principal)
CPT/HCPCS: 78226; A9537

== ENCOUNTER → 2021-05-19 | Outpatient (CLI) | payer OTHER | END | disposition home or self-care (01) | LOC: LABWHC1 10:47 | PROVIDERS: ATTEND Surgery Plastic and Reconstructive Surgery | DX: Z20.822 Contact with and (suspected) exposure to COVID-19 (principal) | CPT/HCPCS: U0003; U0005 ==

== ENCOUNTER → 2021-06-09 | Outpatient (CLI) | payer OTHER | END | disposition home or self-care (01) | LOC: LABWHC1 12:43 | PROVIDERS: ATTEND Surgery Plastic and Reconstructive Surgery | DX: Z53.9 Procedure and treatment not carried out, unspecified reason (principal) ==

== ENCOUNTER 2021-06-15 07:02 | Day surgery (SDC) | payer OTHER ==
[2021-06-10 12:58] LABS: Coronavirus SARS CoV-2 Not Detected (Not Detected)
[2021-06-13 14:13] VITALS: BMI 38.6
[~2021-06-15 07:02] MED LIST: LACTATED RINGERS 1,000 ML IV SCH
[2021-06-15 07:30] VITALS: RESP 16; TEMP 97.8
--- NOTE | 2021-06-15 07:31 | P.GSHP ---
History of Present Illness H&P Date: 06/15/21 CHIEF COMPLAINT: GERD and colitis HISTORY OF PRESENT ILLNESS: The patient is a 46-year-old male who presents with gastroesophageal reflux disease and colitis. Upper and lower endoscopy were offered for further evaluation and management. PAST MEDICAL HISTORY: Please see list. PAST SURGICAL HISTORY: Please see list. MEDICATIONS: Please see list. ALLERGIES: Please see list. SOCIAL HISTORY: No illicit drug use FAMILY HISTORY: No reports of Crohn disease or ulcerative colitis. REVIEW OF ORGAN SYSTEMS: CONSTITUTIONAL: No reports of fevers or chills. GI: Denies any blood in stools or constipation. PHYSICAL EXAM: VITAL SIGNS: Stable GENERAL: Well-developed pleasant in no acute distress. HEENT: No scleral icterus. Extraocular movements grossly intact. Moist buccal mucosa. NECK: Supple without lymphadenopathy. CHEST: Unlabored respirations. Equal bilateral excursions. CARDIOVASCULAR: Regular rate and rhythm. Distal 2+ pulses. ABDOMEN: Soft, nondistended. MUSCULOSKELETAL: No clubbing, cyanosis, or edema. ASSESSMENT: 1. Gastroesophageal reflux disease 2. Colitis PLAN: 1. 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 CVA=L sided weakness, IDDM type II, takosubo syndrome in 2016, IBS, chronic low back pain occasional numbness/tingling/pain down L leg Last Myocardial Infarction Date:: 2016 takosubo History of Any Multi-Drug Resistant Organisms: None Reported Past Surgical History: Back Surgery, Heart Catheterization, Hysterectomy, Tonsillectomy, Uterine Ablation Additional Past Surgical History / Comment(s): 1994 R sided brain tumor resection, low back surgery, colonoscopies, STEFF Past Anesthesia/Blood Transfusion Reactions: No Reported Reaction, Family History of Problems w/ Anesthesia Additional Past Anesthesia/Blood Transfusion Reaction / Comment(s): MOTHER- SLOW TO AWAKEN Smoking Status: Never smoker - Past Family History Father Family Medical History: Cancer, Diabetes Mellitus, Deep Vein Thrombosis (DVT), Hypertension, Prostate Disorder Additional Family Medical History / Comment(s): PROSTATE CANCER Mother Family Medical History: COPD, Diabetes Mellitus, Hypertension, Respiratory Disorder Additional Family Medical History / Comment(s): Pulmonary fibrosis. Medications and Allergies Home Medications Medication Instructions Recorded Confirmed Type Hyoscyamine Sulfate [Levbid] 0.375 mg PO BID 10/19/15 06/13/21 History Sertraline HCl 100 mg PO BID 10/19/15 06/13/21 History lamoTRIgine [Lamotrigine] 25 mg PO BID 10/19/15 06/13/21 History Ergocalciferol (Vitamin D2) 50,000 unit PO GONZALES 10/30/17 06/13/21 History [Vitamin D2] Rosuvastatin Calcium [Crestor] 40 mg PO HS 10/30/17 06/13/21 History amLODIPine [Norvasc] 5 mg PO DAILY 10/30/17 06/13/21 History Hydrochlorothiazide 12.5 mg PO DAILY 01/29/19 06/13/21 History [hydroCHLOROthiazide] Vortioxetine Hydrobromide 10 mg PO DAILY 01/29/19 06/13/21 History [Trintellix] Aspirin 81 mg PO DAILY #30 chewable 01/31/19 06/13/21 Rx Insulin Regular [humuLIN R] 40 units SQ AC-SUPPER 06/13/21 06/13/21 History Insulin Regular [humuLIN R] 80 units SQ AC-BRKFST 06/13/21 06/13/21 History Allergies Allergy/AdvReac Type Severity Reaction Status Date / Time No Known Allergies Allergy Verified 06/13/21 13:52 Surgical - Exam Vital Signs Temp Pulse Resp BP Pulse Ox 97.8 F 92 16 193/97 94 L 06/15/21 07:29 06/15/21 07:29 06/15/21 07:29 06/15/21 07:29 06/15/21 07:29
[2021-06-15] MEDS ORDERED: LIDOCAINE 1% (10MG/ML) FOR IV START INTRADERMA ONE (07:34)
[2021-06-15 07:35] LABS: Glucose,Whole Blood 223 mg/dL (75-99)
[2021-06-15] MEDS ORDERED: INSULIN ASPART (NovoLOG) 100 UNIT/ML VIAL SQ ONE (07:36)
[2021-06-15] MEDS ORDERED: PROPOFOL 10 MG/ML 20 ML VIAL IV ONE (07:37)
[2021-06-15 08:24] VITALS: BP 169/96; PULSE 82
--- NOTE | 2021-06-15 08:43 | P.PCN ---
Date of Procedure: 06/15/21 Description of Procedure: PREOPERATIVE DIAGNOSIS: Gastroesophageal reflux disease. Morbid obesity. POSTOPERATIVE DIAGNOSIS: Gastritis with superficial gastric ulcer Gastroesophageal reflux disease. Morbid obesity. Diaphragmatic hiatal hernia OPERATION: Esophagogastroduodenoscopy with biopsies along antrum. SURGEON: Viky Begum MD ANESTHESIA: MAC. INDICATIONS: The patient is a 46-year-old female who presents with a history of reflux disease. Benefits and risks of the procedure were described. Informed consent was obtained. DESCRIPTION: The patient was brought into the endoscopy suite and laid in the left lateral decubitus position. An Olympus gastroscope was passed along the posterior or opharynx down to the distal esophagus where the squamocolumnar junction was encountered at 38 cm from the incisors. The stomach was entered and no bile reflux was found. Additional findings are listed below. Biopsies with cold forceps were obtained of the antrum. The first through third portion of the duodenum was examined and unremarkable. Retroflexion of the scope confirmed Hill grade 2 lower esophageal valve. The squamocolumnar junction demonstrated LA grade B erosive esophagitis. The stomach was desufflated. The patient tolerated the procedure well. FINDINGS: Squamocolumnar junction 38 cm from the incisors. Diaphragmatic hiatus at 38 cm. Hill grade 2 lower esophageal valve. LA grade B erosive esophagitis. No active duodenitis. Chronic gastritis with superficial gastric ulcers, 3 mm, along antrum RECOMMENDATIONS: 1. Omeprazole 40 mg daily for 2 weeks
--- NOTE | 2021-06-15 08:47 | P.PCN ---
Date of Procedure: 06/15/21 Description of Procedure: PREOPERATIVE DIAGNOSIS: Colitis POSTOPERATIVE DIAGNOSIS: Ascending colon adenoma Colitis OPERATION: Colonoscopy to the ileocecal valve and appendiceal orifice, cecum Colonoscopy with hot snare polypectomy Colonoscopy with cold forceps biopsy, random for colitis SURGEON: Viky Begum MD. ANESTHESIA: MAC. INDICATIONS: The patient is an 46-year-old female with colitis. Colonoscopy was offered for diagnostic assessment. Benefits and risks were described and informed consent was obtained. DESCRIPTION OF PROCEDURE: The patient had undergone Sutab prep. The patient had been brought into the operating room and laid in the left lateral decubitus position. After adequate intravenous sedation, the rectum was examined with 2% lidocaine jelly. External hemorrhoids were encountered. The rectal tone was within normal limits. No lesions were palpated in the rectal vault. An Olympus colonoscope was advanced until the cecum, ileocecal valve and appendiceal orifice were clearly viewed. The prep was excellent. No sigmoid diverticulosis was encountered. Colonic polyps were found and removed. random biopsies were obtained for colitis was found. Retroflexion of the scope demonstrated grade 2 internal hemorrhoids without active bleeding or inflammation. The colon was desufflated. The patient had tolerated the procedure well. Withdrawal time was over 6 minutes. FINDINGS: Aronchick preparation quality scale 1 (1-5) Internal hemorrhoids, grade 2 External hemorrhoids, grade 2. No arteriovenous malformations. No sigmoid diverticulosis Removal of 1 polyp: - Snare polypectomy ascending colon, 5 mm tubulovillous adenoma polyp. Pancolitis, mild with random biopsies obtained. RECOMMENDATIONS: Repeat colonoscopy in 3 years, 2024 Plan - Discharge Summary Discharge Rx Participant: No New Discharge Prescriptions: New Omeprazole [PriLOSEC] 40 mg PO DAILY #14 cap Continue lamoTRIgine [Lamotrigine] 25 mg PO BID Sertraline HCl 100 mg PO BID Hyoscyamine Sulfate [Levbid] 0.375 mg PO BID amLODIPine [Norvasc] 5 mg PO DAILY Ergocalciferol (Vitamin D2) [Vitamin D2] 50,000 unit PO GONZALES Rosuvastatin Calcium [Crestor] 40 mg PO HS Hydrochlorothiazide [hydroCHLOROthiazide] 12.5 mg PO DAILY Vortioxetine Hydrobromide [Trintellix] 10 mg PO DAILY Aspirin 81 mg PO DAILY #30 chewable Insulin Regular [humuLIN R] 80 units SQ AC-BRKFST Insulin Regular [humuLIN R] 40 units SQ AC-SUPPER Discharge Medication List Hyoscyamine Sulfate [Levbid] 0.375 mg PO BID 10/19/15 [History] Sertraline HCl 100 mg PO BID 10/19/15 [History] lamoTRIgine [Lamotrigine] 25 mg PO BID 10/19/15 [History] Ergocalciferol (Vitamin D2) [Vitamin D2] 50,000 unit PO GONZALES 10/30/17 [History] Rosuvastatin Calcium [Crestor] 40 mg PO HS 10/30/17 [History] amLODIPine [Norvasc] 5 mg PO DAILY 10/30/17 [History] Hydrochlorothiazide [hydroCHLOROthiazide] 12.5 mg PO DAILY 01/29/19 [History] Vortioxetine Hydrobromide [Trintellix] 10 mg PO DAILY 01/29/19 [History] Aspirin 81 mg PO DAILY #30 chewable 01/31/19 [Rx] Insulin Regular [humuLIN R] 40 units SQ AC-SUPPER 06/13/21 [History] Insulin Regular [humuLIN R] 80 units SQ AC-BRKFST 06/13/21 [History] Omeprazole [PriLOSEC] 40 mg PO DAILY #14 cap 06/15/21 [Rx] Follow up Appointment(s)/Referral(s): Viky Begum MD [STAFF PHYSICIAN] - 06/27/21 Patient Instructions/Handouts: Gastritis (DC), Diet for Stomach Ulcers and Gastritis (ED), Colorectal Polyps (DC) Activity/Diet/Wound Care/Special Instructions: Repeat colonoscopy in 3 years, 2024 Discharge Disposition: HOME SELF-CARE
== END 2021-06-15 09:21 | disposition home or self-care (01) ==
LOC: ORWHC2ENDO 07:02
PROVIDERS: ATTEND Surgery Plastic and Reconstructive Surgery
DX: K52.9 Noninfective gastroenteritis and colitis, unspecified (principal); K29.70 Gastritis, unspecified, without bleeding; D12.2 Benign neoplasm of ascending colon
CPT/HCPCS: 45380; 45385; 43239; 88305; U0003; C9803; U0005; J2704

== ENCOUNTER → 2021-08-11 | Outpatient (CLI) | payer OTHER ==
--- NOTE | 2021-08-14 11:43 | MM ---
Reason for exam: screening (asymptomatic). Last mammogram was performed 3 years and 7 months ago. Physical Findings: A clinical breast exam by your physician is recommended on an annual basis and results should be correlated with mammographic findings. MG 3D Screening Mammo W/Cad Bilateral CC and MLO view(s) were taken. Prior study comparison: January 13, 2018, bilateral MG screening mammo w CAD. October 11, 2016, bilateral MG screening mammo w CAD. The breast tissue is heterogeneously dense. This may lower the sensitivity of mammography. There is no discrete abnormality. No significant changes when compared with prior studies. ASSESSMENT: Negative, BI-RAD 1 RECOMMENDATION: Routine screening mammogram of both breasts in 1 year.
== END | disposition home or self-care (01) ==
LOC: RADMAMWWP 16:01
PROVIDERS: ATTEND Family Medicine
DX: Z12.31 Encounter for screening mammogram for malignant neoplasm of breast (principal)
CPT/HCPCS: 77063; 77067

== ENCOUNTER → 2022-09-13 | Outpatient (CLI) | payer OTHER ==
--- NOTE | 2022-09-14 19:38 | MM ---
Reason for Exam: Screening (asymptomatic). Last mammogram was performed 1 year(s) and 1 month(s) ago. Patient History: Menarche at age 11. Patient has no children. Hysterectomy at age 36. Risk Values: Miri 5 year model risk: 1.0%. NCI Lifetime model risk: 10.0%. Prior Study Comparison: 10/11/2016 Bilateral Screening Mammogram, [facility]. 01/13/2018 Bilateral Screening Mammogram, [facility]. 08/11/2021 Bilateral Screening Mammogram, [facility]. Tissue Density: There are scattered fibroglandular densities. Findings: Analyzed By CAD. There is no suspicious group of microcalcifications or new suspicious mass in either breast. Overall Assessment: Negative, BI-RAD 1 Management: Screening Mammogram of both breasts in 1 year. . Patient should continue monthly self-breast exams. A clinical breast exam by your physician is recommended on an annual basis. This exam should not preclude additional follow-up of suspicious palpable abnormalities. Note on Miri scores and lifetime risk: 1. A Miri score greater than 3% is considered moderate risk. If this is the case, consider specialist referral to assess eligibility for a risk reducing agent. 2. If overall lifetime risk for the development of breast cancer is 20% or higher, the patient may qualify for future screening with alternating mammogram and breast MRI. Electronically signed and approved by: Kin Crystal M.D. Radiologist
== END | disposition home or self-care (01) ==
LOC: RADMAMWWP 14:37
PROVIDERS: ATTEND Family Medicine
DX: Z12.31 Encounter for screening mammogram for malignant neoplasm of breast (principal)
CPT/HCPCS: 77063; 77067

== ENCOUNTER → 2024-04-04 | Outpatient (CLI) | payer BC ==
[2024-04-04 13:46] LABS: Basophils # (A) 0.04 X 10*3/uL (0.00-0.10); Basophils % (A) 0.4 %; Eosinophils # (A) 0.52 X 10*3/uL (0.04-0.35); Eosinophils % (A) 5.7 %; HCT 35.3 % (37.2-46.3); HGB 11.3 g/dL (12.0-15.0); Lymphocytes # (A) 1.35 X 10*3/uL (0.90-5.00); Lymphocytes % (A) 14.8 %; MCH 31.3 pg (27.0-32.0); MCV 97.8 FL (80.0-97.0); Mean Platelet Volume 10.4 FL (9.5-12.2); Monocytes # (A) 0.57 X 10*3/uL (0.20-1.00); Monocytes % (A) 6.2 %; NRBC Per 100 WBC 0 X 10*3/uL (0.00-0.01); Neutrophils # (A) 6.61 X 10*3/uL (1.80-7.70); Neutrophils % (A) 72.5 %; Platelet Count 295 X 10*3/uL (140-440); RBC 3.61 X 10*6/uL (4.10-5.20); RDW 13.3 % (11.5-14.5); WBC 9.13 X 10*3/uL (4.50-10.00)
[2024-04-04 14:15] LABS: % Iron Saturation 15.31 (12.00-45.00); Blood Urea Nitrogen 21.2 mg/dL (9.0-27.0); Calcium 8.9 mg/dL (8.7-10.3); Carbon Dioxide 21.2 mmol/L (21.6-31.8); Chloride 109 mmol/L (96-109); Glucose 94 mg/dL (70-110); Iron 60 UG/DL (50-170); Phosphorus 3.7 mg/dL (2.4-5.1); Potassium 4.8 mmol/L (3.5-5.5); Sodium 140 mmol/L (135-145); Total Iron Binding Capacity 392 UG/DL (228-460); Uric Acid 3.8 mg/dL (2.9-7.7)
== END | disposition home or self-care (01) ==
LOC: LABWHC1 09:32
PROVIDERS: ATTEND Internal Medicine Nephrology
DX: N18.4 Chronic kidney disease, stage 4 (severe) (principal); D63.1 Anemia in chronic kidney disease; N39.0 Urinary tract infection, site not specified; E55.9 Vitamin D deficiency, unspecified; N25.81 Secondary hyperparathyroidism of renal origin; M10.9 Gout, unspecified; R80.9 Proteinuria, unspecified
CPT/HCPCS: 36415; 80048; 82043; 82306; 82570; 82728; 83540; 83550; 83735; 83970; 84100; 84550; 85025